=== PATIENT | female | born 1995 | race Caucasian/White ===

== ENCOUNTER → 2016-08-01 | Outpatient (CLI) | payer OTHER ==
--- NOTE | 2016-08-01 12:18 | REP ---
LUMBAR SPINE, FIVE VIEWS: HISTORY: Back pain. COMPARISON: 01/06/2015. A rudimentary disc is present at the S1-2 level. There is no acute fracture or subluxation. The intervertebral discs are normal in height. The facet joints are normal in appearance. IMPRESSION: There is no acute fracture or subluxation. Signed by Milton Donis MD 08/01/2016 12:33 P
== END ==
LOC: M RAD 10:36
PROVIDERS: ATTEND Nurse Practitioner Family
DX: M54.5 Low back pain (principal)

== ENCOUNTER → 2016-08-04 | Outpatient (CLI) | payer OTHER ==
[2016-08-04 10:01] LABS: ALBUMIN 3.2 GM/DL (3.2-5.2); ALBUMIN/GLOBULIN RATIO 0.84 (1.00-1.93); ALKALINE PHOSPHATASE 88 U/L (45-117); ALT/SGPT 18 U/L (12-78); ANION GAP 8 MEQ/L (8-16); AST/SGOT 9 U/L (15-37); BILIRUBIN,TOTAL 0.2 MG/DL (0.2-1.0); BLOOD UREA NITROGEN 12 MG/DL (7-18); CALCIUM LEVEL 8.7 MG/DL (8.5-10.1); CARBON DIOXIDE LEVEL 23 MEQ/L (21-32); CHLORIDE LEVEL 110 MEQ/L (98-107); CHOLESTEROL LEVEL 139 MG/DL (<200); GLOMERULAR FILTRATION RATE > 60.0 (>60); GLUCOSE, FASTING 87 MG/DL (70-105); POTASSIUM SERUM 4.4 MEQ/L (3.5-5.1); SODIUM LEVEL 141 MEQ/L (136-145); TRIGLYCERIDES LEVEL 161 MG/DL (<150)
== END ==
LOC: M LAB 08:15
PROVIDERS: ATTEND Nurse Practitioner Family
DX: Z13.29 Encounter for screening for other suspected endocrine disorder (principal); Z13.220 Encounter for screening for lipoid disorders; F32.9 Major depressive disorder, single episode, unspecified

== ENCOUNTER 2016-08-24 00:52 | Emergency (ER) | payer OTHER ==
[~2016-08-24] VITALS: Ht 172.7 cm; Wt 127.0 kg
[2016-08-24] MEDS ORDERED: depression med PO (01:04)
[2016-08-24] MEDS ORDERED: KETOROLAC 60 MG/2 ML VIAL (J1885) IM ONE (02:00)
--- NOTE | 2016-08-24 02:50 | REPUSA ---
HISTORY: Pain. COMPARISON: Not provided. TECHNIQUE: Multiple thin-section contiguous helically-acquired axially-displayed computed tomographic images of the lumbar spine are obtained from T12 through S1, with images reviewed at soft tissue and bone window. 2D Sagittal and coronal reformatted images are performed. FINDINGS: Straightening of the lumbar lordosis. 3 mm retrolisthesis of L5 on S1. Mild multilevel degenerative disc disease. Findings are demonstrated by multilevel diffuse disc bulge s might impinge on the corresponding aspect of the thecal sac from L3-S1 levels. Mild bilateral neura l foramina narrowing at the same levels. Inverted S-shaped scoliosis. Vertebral body mineralization is normal. No paraspinal masses or collections. IMPRESSION: Inverted S-shaped scoliosis of the lumbar spine. Straightening of the lumbar lordosis. Mild multilevel degenerative disc disease. Thank you for your kind referral of this patient.
[2016-08-24 03:08] VITALS: BP 124/74
[2016-08-24] MEDS ORDERED: KETO10TAB PO (03:11)
[2016-08-25] MEDS ORDERED: PRED20TA PO (05:51)
== END 2016-08-24 03:33 | disposition home or self-care (01) ==
LOC: M ED 01:27
DX: G89.29 Other chronic pain (principal); M54.9 Dorsalgia, unspecified; M51.26 Other intervertebral disc displacement, lumbar region; F32.9 Major depressive disorder, single episode, unspecified; F17.200 Nicotine dependence, unspecified, uncomplicated; M41.86 Other forms of scoliosis, lumbar region; Z79.899 Other long term (current) drug therapy
CPT/HCPCS: 72131; 96372; 99281; J1885

== ENCOUNTER 2016-08-25 04:31 | Emergency (ER) | payer OTHER ==
[~2016-08-25] VITALS: Ht 172.7 cm; Wt 127.0 kg
[~2016-08-25 04:31] MED LIST: KETO10TAB PO; depression med PO
[2016-08-25] MEDS ORDERED: PRED20TA PO (05:51)
[2016-08-25] MEDS ORDERED: dexameTHASONE 20 MG/5 ML VIAL (J1100) IM ONE (06:00)
[2016-08-25] MEDS ORDERED: KETOROLAC 60 MG/2 ML VIAL (J1885) IM ONE (06:00)
[2016-08-25 06:09] VITALS: BP 157/90
== END 2016-08-25 06:34 | disposition home or self-care (01) ==
LOC: M ED 05:22
DX: G89.29 Other chronic pain (principal); M54.9 Dorsalgia, unspecified; F17.200 Nicotine dependence, unspecified, uncomplicated; Z79.899 Other long term (current) drug therapy
CPT/HCPCS: 96372; 99282; J1100; J1885

== ENCOUNTER → 2016-10-04 | Outpatient (REF) | payer OTHER ==
[~2016-10-04] MED LIST changes: +BANO25TA PO; +ESCI10TA2 PO; +METF1000 PO; +NAPR500T PO; +NITR100C37 PO; +PHEN200T22 PO; +PRED20TA PO; +VALI5TAB PO; +VITA500055 PO
[2016-10-04 17:28] LABS: MICROSCOPIC INDICATED? MAN NO (NO)
== END ==
LOC: M LAB REF 16:23
PROVIDERS: ATTEND Physician Assistant
DX: M54.5 Low back pain (principal)

== ENCOUNTER 2016-10-07 12:06 | Emergency (ER) | payer OTHER ==
[~2016-10-07] VITALS: Ht 172.7 cm; Wt 128.7 kg
[2016-10-07 12:06] VITALS: BP 139/85
[~2016-10-07 12:06] MED LIST changes: -BANO25TA PO; -ESCI10TA2 PO; -METF1000 PO; -NAPR500T PO; -NITR100C37 PO; -PHEN200T22 PO; -VALI5TAB PO; -VITA500055 PO
[2016-10-07] MEDS ORDERED: ESCI10TA2 PO (12:11)
[2016-10-07] MEDS ORDERED: BANO25TA PO (12:13)
[2016-10-07] MEDS ORDERED: METF10004 PO (12:13)
[2016-10-07] MEDS ORDERED: NITR100C39 PO (12:14)
[2016-10-07] MEDS ORDERED: VITA500055 PO (12:14)
[2016-10-07] MEDS ORDERED: PHEN200T22 PO (12:14)
[2016-10-07] MEDS ORDERED: diazePAM 5 MG TAB PO ONE (13:00)
[2016-10-07] MEDS ORDERED: NAPROXEN 250 MG TAB PO ONE (13:00)
[2016-10-07] MEDS ORDERED: VALI5TAB PO (13:12)
[2016-10-07] MEDS ORDERED: NAPR500T PO (13:12)
== END 2016-10-07 13:22 | disposition home or self-care (01) ==
LOC: M ED 13:18
DX: M54.31 Sciatica, right side (principal); F32.9 Major depressive disorder, single episode, unspecified; F17.200 Nicotine dependence, unspecified, uncomplicated; Z79.899 Other long term (current) drug therapy

== ENCOUNTER 2016-10-29 20:49 | Emergency (ER) | payer OTHER ==
[~2016-10-29] VITALS: Ht 172.7 cm; Wt 130.2 kg
[~2016-10-29 20:49] MED LIST changes: +BANO25TA PO; +ESCI10TA2 PO; +METF10004 PO; +NAPR500T PO; +NITR100C39 PO; +PHEN200T22 PO; +VALI5TAB PO; +VITA500055 PO
[2016-10-30] MEDS ORDERED: PERCOCET 5MG/325MG TAB PO ONE (00:30)
[2016-10-30] MEDS ORDERED: MORPHINE 4 MG/ML 1ML SYRINGE IM ONE (04:45)
[2016-10-30 04:50] VITALS: BP 141/78
== END 2016-10-30 04:51 | disposition home or self-care (01) ==
LOC: M ED 20:49
DX: G89.29 Other chronic pain (principal); M54.9 Dorsalgia, unspecified; E11.9 Type 2 diabetes mellitus without complications; F32.9 Major depressive disorder, single episode, unspecified; E66.9 Obesity, unspecified; F17.200 Nicotine dependence, unspecified, uncomplicated; Z79.84 Long term (current) use of oral hypoglycemic drugs; Z79.899 Other long term (current) drug therapy; Z91.040 Latex allergy status

== ENCOUNTER → 2016-11-30 | Outpatient (REF) | payer OTHER ==
[~2016-11-30] MED LIST changes: +TRIA1CR TOP
== END ==
LOC: M LAB REF 18:13
PROVIDERS: ATTEND Physician Assistant Medical
DX: R30.0 Dysuria (principal)

== ENCOUNTER 2017-01-09 21:42 | Emergency (ER) | payer OTHER ==
[~2017-01-09] VITALS: Ht 170.2 cm; Wt 127.3 kg
[2017-01-09 21:42] VITALS: BP 178/108
[~2017-01-09 21:42] MED LIST changes: -TRIA1CR TOP
[2017-01-09] MEDS ORDERED: diphenhydrAMINE 50 MG CAP PO ONE (23:00)
[2017-01-09] MEDS ORDERED: TRIA1CR TOP (23:06)
== END 2017-01-09 23:56 | disposition home or self-care (01) ==
LOC: M ED 21:42
DX: S40.861A Insect bite (nonvenomous) of right upper arm, initial encounter (principal); S40.862A Insect bite (nonvenomous) of left upper arm, initial encounter; T78.40XA Allergy, unspecified, initial encounter; W57.XXXA Bitten or stung by nonvenomous insect and other nonvenomous arthropods, initial encounter; Y92.099 Unspecified place in other non-institutional residence as the place of occurrence of the external cause; Y93.9 Activity, unspecified; Y99.9 Unspecified external cause status; J45.909 Unspecified asthma, uncomplicated; E11.9 Type 2 diabetes mellitus without complications; Z79.84 Long term (current) use of oral hypoglycemic drugs; Z79.899 Other long term (current) drug therapy; Z91.040 Latex allergy status

== ENCOUNTER → 2017-04-02 | Outpatient (REF) | payer OTHER ==
[~2017-04-02] MED LIST changes: +TRIA1CR TOP
== END ==
LOC: M LAB REF 13:29
PROVIDERS: ATTEND Nurse Practitioner Adult Health
DX: E03.9 Hypothyroidism, unspecified (principal)

== ENCOUNTER → 2017-05-09 | Outpatient (CLI) | payer OTHER | LOC: M RAD 08:27 | DX: M51.36 Other intervertebral disc degeneration, lumbar region (principal); Z53.9 Procedure and treatment not carried out, unspecified reason ==

== ENCOUNTER → 2017-06-04 | Outpatient (REF) | payer OTHER, MEDICAID ==
[2017-06-05 13:38] LABS: AMORPHOUS SEDIMENT MODERATE (NEGATIVE); APPEARANCE, URINE TURBID (CLEAR); BACTERIA, URINE AUTO NEGATIVE (NEGATIVE); BILIRUBIN, URINE AUTO NEGATIVE (NEGATIVE); BLOOD, URINE BLOOD NEGATIVE (NEGATIVE); COLOR, URINE YELLOW (YELLOW); GLUCOSE, URINE (UA) AUTO NEGATIVE (NEGATIVE); KETONE, URINE AUTO NEGATIVE (NEGATIVE); LEUKOCYTE ESTERASE, URINE AUTO 1+ (NEGATIVE); MUCUS, URINE SMALL (NEGATIVE); NITRITE, URINE AUTO NEGATIVE (NEGATIVE); PROTEIN, URINE AUTO NEGATIVE (NEGATIVE); RBC, URINE AUTO 2 /HPF (0-3); SQUAMOUS EPITHELIAL CELL UR AU 3 /HPF (0-6); UROBILINOGEN, URINE AUTO 0.2 mg/dL (0.0-2.0); WBC, URINE AUTO 1 /HPF (0-3)
[2017-06-05 16:01] LABS: CHLAMYDIA DNA AMPLIFICATION NEGATIVE (NEGATIVE); GC DNA AMPLIFICATION NEGATIVE (NEGATIVE)
== END ==
LOC: M LAB REF 06-05 12:40
DX: R35.0 Frequency of micturition (principal)
CPT/HCPCS: 81001

== ENCOUNTER 2017-06-06 14:04 | Emergency (ER) | payer OTHER, MEDICAID ==
[2017-06-06] MEDS: NORCO, ANEXSIA 5/325MG TABLET (HYDROcodone/ACETAMINOPHEN) PO (15:54)
[2017-06-06 16:10] LABS: KETONE, URINE AUTO RFX TRACE mg/dL (NEGATIVE); MUCUS, URINE RFX MODERATE (NEGATIVE); NITRITE, URINE AUTO RFX NEGATIVE (NEGATIVE); RBC, URINE AUTO RFX 6 /HPF (0-3); SPECIFIC GRAVITY UR AUTO RFX 1.027 (1.002-1.035); SQUAM EPITHELIAL CELL UR AURFX 24 /HPF (0-6)
[2017-06-06 16:12] LABS: LEUKOCYTE ESTERASE UR AUTO RFX 2+ (NEGATIVE); WBC, URINE AUTO RFX 30 /HPF (0-3)
== END 2017-06-06 18:00 | disposition home or self-care (01) ==
LOC: M ED 14:04
DX: S00.431A Contusion of right ear, initial encounter (principal); S60.042A Contusion of left ring finger without damage to nail, initial encounter; S13.4XXA Sprain of ligaments of cervical spine, initial encounter; S03.40XA Sprain of jaw, unspecified side, initial encounter; N39.0 Urinary tract infection, site not specified; Y04.8XXA Assault by other bodily force, initial encounter; Y92.099 Unspecified place in other non-institutional residence as the place of occurrence of the external cause; Y93.9 Activity, unspecified; E11.9 Type 2 diabetes mellitus without complications; J45.909 Unspecified asthma, uncomplicated; F32.9 Major depressive disorder, single episode, unspecified; F17.200 Nicotine dependence, unspecified, uncomplicated; Z79.84 Long term (current) use of oral hypoglycemic drugs; Z91.040 Latex allergy status
CPT/HCPCS: 73130

== ENCOUNTER → 2017-07-11 | Outpatient (REF) | payer OTHER, MEDICAID ==
[2017-07-11 20:21] LABS: HIV 1&2 SCREEN CENTAUR NEGATIVE (NEGATIVE)
== END ==
LOC: M LAB REF 17:48
DX: Z11.3 Encounter for screening for infections with a predominantly sexual mode of transmission (principal)
CPT/HCPCS: 86780

== ENCOUNTER → 2017-08-08 | Outpatient (REF) | payer OTHER, MEDICAID ==
[2017-08-08 13:09] LABS: HIV 1&2 SCREEN CENTAUR NEGATIVE (NEGATIVE)
[2017-08-08 13:10] LABS: HEPATITIS A ANTIBODY IGM NEGATIVE (NEGATIVE)
[2017-08-08 13:21] LABS: ESTIMATED AVERAGE GLUCOSE 120 MG/DL (60-110); HEMOGLOBIN A1c 5.8 %
[2017-08-09 08:06] LABS: HEPATITIS B CORE ANTIBODY IGG Negative (Negative)
== END ==
LOC: M LAB REF 11:49
DX: I10 Essential (primary) hypertension (principal); Z11.3 Encounter for screening for infections with a predominantly sexual mode of transmission

== ENCOUNTER → 2017-08-30 | Outpatient (REF) | payer OTHER, MEDICAID | LOC: M LAB REF 18:19 | DX: E03.9 Hypothyroidism, unspecified (principal) | CPT/HCPCS: 84443 ==

== ENCOUNTER 2017-11-22 19:39 | Emergency (ER) | payer OTHER, MEDICAID ==
[2017-11-22] MEDS: BACLOFEN 10 MG TAB PO (20:14)
[2017-11-22] MEDS: KETOROLAC TROMETHAMINE 10 MG TAB PO (20:15)
== END 2017-11-22 20:51 | disposition home or self-care (01) ==
LOC: M ED 19:39
DX: G89.29 Other chronic pain (principal); M54.5 Low back pain; E11.9 Type 2 diabetes mellitus without complications; I10 Essential (primary) hypertension; J45.909 Unspecified asthma, uncomplicated; F41.9 Anxiety disorder, unspecified; F33.9 Major depressive disorder, recurrent, unspecified; Z79.890 Hormone replacement therapy; Z79.84 Long term (current) use of oral hypoglycemic drugs; F17.210 Nicotine dependence, cigarettes, uncomplicated
CPT/HCPCS: 99282

== ENCOUNTER → 2017-12-03 | Outpatient (CLI) | payer OTHER | LOC: M RAD 17:03 | DX: M54.5 Low back pain (principal) | CPT/HCPCS: 72148 ==

== ENCOUNTER 2017-12-24 14:07 | Outpatient (RCR) | payer OTHER | END 2018-01-13 | LOC: M PT 14:07 | DX: M54.5 Low back pain (principal); Z51.89 Encounter for other specified aftercare | CPT/HCPCS: 97010 ==

== ENCOUNTER 2018-01-14 15:50 | Outpatient (RCR) | payer OTHER | END 2018-02-13 | LOC: M PT 01-16 15:15 | DX: Z51.89 Encounter for other specified aftercare (principal); M54.5 Low back pain | CPT/HCPCS: 97010 ==

== ENCOUNTER → 2018-03-05 | Outpatient (REF) | payer OTHER, MEDICAID | LOC: M LAB REF 16:44 | DX: E03.9 Hypothyroidism, unspecified (principal) | CPT/HCPCS: 84443 ==

== ENCOUNTER → 2018-03-13 | Outpatient (REF) | payer OTHER, MEDICAID ==
[2018-03-13 18:31] LABS: RHEUMATOID FACTOR QUANT < 10.0 IU/ML (<15.0); TOTAL PROTEIN 7.7 GM/DL (6.4-8.2)
[2018-03-13 18:41] LABS: FOLATE 8.8 NG/ML; VITAMIN B12 LEVEL 386 PG/ML
[2018-03-13 19:01] LABS: ESTIMATED AVERAGE GLUCOSE 123 MG/DL (60-110); HEMOGLOBIN A1c 5.9 %
[2018-03-13 19:44] LABS: ERYTHROCYTE SEDIMENTATION RATE 14 mm/hr (0-20)
[2018-03-15 11:25] LABS: ALBUMIN 3.89 GM/DL (3.29-5.55); ALBUMIN % 50.5 % (55.8-66.1); ALPHA-1-GLOBULIN % 6.3 % (2.9-4.9); ALPHA-1-GLOBULINS 0.49 GM/DL (0.17-0.41); ALPHA-2-GLOBULINS 1.09 GM/DL (0.42-0.99); ALPHA-2-GLOBULINS % 14.1 % (7.1-11.8); BETA-1-GLOBULINS 0.67 GM/DL (0.28-0.60); BETA-1-GLOBULINS % 8.7 % (4.7-7.2); BETA-2-GLOBULINS 0.57 GM/DL (0.19-0.55); BETA-2-GLOBULINS % 7.4 % (3.2-6.5)
[2018-03-19 09:17] LABS: DRVV SCREEN 44.5 SEC
[2018-03-19 09:30] LABS: PTT LUPUS TYPE ANTICOAG SCREEN 1.1 (0-1.2)
[2018-03-20 10:11] LABS: ANTINUCLEAR ANTIBODIES DIRECT Negative (Negative); VITAMIN B1 LEVEL WHOLE BLOOD 156.2 nmol/L (66.5-200.0); VITAMIN B6,PYRIDOXAL PHOSPHATE 1.8 ug/L (2.0-32.8); VITAMIN E(ALPHA TOCOPHEROL) 7.9 mg/L (5.9-19.4); VITAMIN E(GAMMA TOCOPHEROL) 1.7 mg/L (0.7-4.9)
== END ==
LOC: M LABNEURO 13:07
DX: M54.2 Cervicalgia (principal); M54.5 Low back pain
CPT/HCPCS: 82746

== ENCOUNTER → 2018-03-18 | Outpatient (REF) | payer OTHER, MEDICAID ==
[2018-03-18 13:47] LABS: BASO # 0.1 10^3/uL (0.0-0.2); BASO % 0.5 % (0.0-1.0); EOS # 0.3 10^3/uL (0.0-0.50); EOS % 2.4 % (0.0-3.0); HEMATOCRIT 39.6 % (36.0-47.0); HEMOGLOBIN 12.3 g/dl (12.0-15.5); IMMATURE GRANULOCYTE % 0.4 % (0-3.0); LYMPH % 24.5 % (24.0-44.0); MEAN CORPUSCULAR HEMOGLOBIN 24.4 pg (27.0-33.0); MEAN CORPUSCULAR HGB CONC 31.1 g/dl (32.0-36.5); MEAN CORPUSCULAR VOLUME 78.4 fl (80.0-96.0); MONO # 0.9 10^3/uL (0.0-0.8); MONO % 7.1 % (0.0-5.0); NEUTROPHILS # 7.9 10^3/uL (1.8-7.7); NEUTROPHILS % 65.1 % (36.0-66.0); PLATELET COUNT, AUTOMATED 487 10^3/uL (150-450); RED BLOOD COUNT 5.05 10^6/uL (4.00-5.40); RED CELL DISTRIBUTION WIDTH 15.5 % (11.5-14.5); WHITE BLOOD COUNT 12.1 10^3/uL (4.0-10.0)
[2018-03-19 09:44] LABS: DRVV SCREEN 46.4 SEC
[2018-03-19 09:52] LABS: PTT LUPUS TYPE ANTICOAG SCREEN 1.1 (0-1.2)
== END ==
LOC: M LABNEURO 09:26
DX: M54.2 Cervicalgia (principal); M54.5 Low back pain; G89.29 Other chronic pain
CPT/HCPCS: 85730

== ENCOUNTER → 2018-06-10 | Outpatient (REF) | payer OTHER, MEDICAID ==
[~2018-06-10] MED LIST changes: +BACL10TA2 PO; +CIPR-249 PO; +DICL75TA PO; +LEVO25TA5; +LISINOP/HCTZ; +NAPR-50 PO; +NAPR-885 PO; -NAPR500T PO
[2018-06-10 20:03] LABS: ALBUMIN 3.7 GM/DL (3.2-5.2); ALT/SGPT 17 U/L (12-78); BILIRUBIN,TOTAL 0.1 MG/DL (0.2-1.0); BLOOD UREA NITROGEN 15 MG/DL (7-18); CALCIUM LEVEL 9.1 MG/DL (8.5-10.1); CARBON DIOXIDE LEVEL 23 MEQ/L (21-32); CHLORIDE LEVEL 110 MEQ/L (98-107); CREATININE FOR GFR 0.76 MG/DL (0.55-1.30); GLOMERULAR FILTRATION RATE > 60.0 (>60); GLUCOSE, FASTING 80 MG/DL (70-100); POTASSIUM SERUM 3.7 MEQ/L (3.5-5.1); SODIUM LEVEL 141 MEQ/L (136-145); TOTAL 25(OH) VITAMIN D 41.5 NG/ML (30.0-100.0); TOTAL PROTEIN 7.5 GM/DL (6.4-8.2)
== END ==
LOC: M LAB REF 19:13
PROVIDERS: ATTEND Nurse Practitioner Adult Health
DX: E03.9 Hypothyroidism, unspecified (principal)

== ENCOUNTER → 2018-12-19 | Outpatient (REF) | payer OTHER, MEDICAID ==
[~2018-12-19] MED LIST changes: -NAPR-50 PO; +NAPR-837 PO; +TRIA0.1C60 TOP; -TRIA1CR TOP
[2018-12-19 19:59] LABS: ALBUMIN 3.3 GM/DL (3.2-5.2); ALT/SGPT 21 U/L (12-78); BILIRUBIN,TOTAL < 0.1 MG/DL (0.2-1.0); BLOOD UREA NITROGEN 12 MG/DL (7-18); CALCIUM LEVEL 9.8 MG/DL (8.5-10.1); CARBON DIOXIDE LEVEL 25 MEQ/L (21-32); CHLORIDE LEVEL 110 MEQ/L (98-107); CREATININE FOR GFR 0.71 MG/DL (0.55-1.30); GLOMERULAR FILTRATION RATE > 60.0 (>60); GLUCOSE, FASTING 120 MG/DL (70-100); POTASSIUM SERUM 4.3 MEQ/L (3.5-5.1); SODIUM LEVEL 140 MEQ/L (136-145); TOTAL 25(OH) VITAMIN D 27.8 NG/ML (30.0-100.0); TOTAL PROTEIN 7.1 GM/DL (6.4-8.2)
[2018-12-19 21:05] LABS: CHLAMYDIA DNA AMPLIFICATION NEGATIVE (NEGATIVE); GC DNA AMPLIFICATION NEGATIVE (NEGATIVE)
[2018-12-20 12:03] LABS: HIV 1&2 SCREEN CENTAUR NEGATIVE (NEGATIVE)
== END ==
LOC: M LAB REF 19:05
PROVIDERS: ATTEND Nurse Practitioner Adult Health
DX: Z11.3 Encounter for screening for infections with a predominantly sexual mode of transmission (principal)

== ENCOUNTER 2019-03-10 03:14 | Inpatient (IN) | payer MEDICAID, OTHER ==
[~2019-03-10] VITALS: Ht 172.7 cm; Wt 118.4 kg
[~2019-03-10 03:14] MED LIST changes: -LEVO25TA5; +LEVO25TA5 PO
[2019-03-10] MEDS ORDERED: NS 1,000 ML IV ONE (05:00)
[2019-03-10] MEDS ORDERED: IPRATROPIUM 0.5MG/ALBUTEROL 2.5MG INH SOL UD 3ML (DUONEB)(J7620) NEB ONE ×2 (05:00→06:30)
[2019-03-10 05:26] LABS: HEMOGLOBIN 11.3 g/dl (12.0-15.5); MEAN CORPUSCULAR VOLUME 80.7 fl (80.0-96.0); RED BLOOD COUNT 4.71 10^6/uL (4.00-5.40); WHITE BLOOD COUNT 15.4 10^3/uL (4.0-10.0)
[2019-03-10 05:27] LABS: BASO # 0.1 10^3/uL (0.0-0.2); BASO % 0.4 % (0.0-1.0); EOS # 0.1 10^3/uL (0.0-0.5); EOS % 0.3 % (0.0-3.0); LYMPH # 2.4 10^3/uL (1.5-5.0); LYMPH % 15.4 % (24.0-44.0); MEAN CORPUSCULAR HGB CONC 29.7 g/dl (32.0-36.5); MONO # 1.5 10^3/uL (0.0-0.8); MONO % 9.9 % (0.0-5.0); NEUTROPHILS # 11.3 10^3/uL (1.5-8.5); NEUTROPHILS % 73.5 % (36.0-66.0); PLATELET COUNT, AUTOMATED 487 10^3/uL (150-450)
[2019-03-10 05:32] LABS: HCG, SERUM QUALITATIVE NEGATIVE (NEGATIVE)
[2019-03-10 06:04] LABS: INFLUENZA A AMPLIFICATION NEGATIVE (NEGATIVE); INFLUENZA B AMPLIFICATION NEGATIVE (NEGATIVE)
[2019-03-10 06:16] LABS: BLOOD UREA NITROGEN 10 MG/DL (7-18); CREATININE FOR GFR 0.69 MG/DL (0.55-1.30); GLOMERULAR FILTRATION RATE > 60.0 (>60); GLUCOSE, FASTING 141 MG/DL (70-100)
[2019-03-10 06:17] LABS: CALCIUM LEVEL 9.5 MG/DL (8.5-10.1); CARBON DIOXIDE LEVEL 24 MEQ/L (21-32); CHLORIDE LEVEL 109 MEQ/L (98-107); CK-MB VALUE MASS < 1.0 NG/ML (<3.6); CPK CREATINE PHOSPHOKINASE 36 U/L (26-192); MB/CK RELATIVE INDEX 2.77 (< OR =4); POTASSIUM SERUM 3.8 MEQ/L (3.5-5.1); SODIUM LEVEL 142 MEQ/L (136-145); TROPONIN I < 0.02 NG/ML (< 0.10)
[2019-03-10] MEDS ORDERED: ISOVUE-370 76% 100ML VIAL (Q9967) As Ordered ONE (06:20)
[2019-03-10] MEDS ORDERED: KETOROLAC 30 MG/ML VIAL (J1885) As Ordered ONE (06:24)
[2019-03-10] MEDS ORDERED: KETOROLAC 30 MG/ML VIAL (J1885) IV ONE (06:30)
--- NOTE | 2019-03-10 06:59 | REPVR ---
PROCEDURE INFORMATION: Exam: CT Angiography Chest With Contrast Exam date and time: 03/10/2019 6:36 AM Age: 23 years old Clinical history: Shortness of breath; Chest pain; Type not specified; Additional info: Chest pain, SOB, tachy, pos d-dimer TECHNIQUE: Imaging protocol: Computed tomographic angiography of the chest with intravenous contrast. 3D rendering: MIP reconstructed images were created and reviewed. Radiation optimization: All CT scans at this facility use at least one of these dose optimization techniques: automated exposure control; mA and/or kV adjustment per patient size (includes targeted exams where dose is matched to clinical indication); or iterative reconstruction. Contrast material: ISOVUE 370; Contrast volume: 75 ml; Contrast route: IV; COMPARISON: CR Chest, 2 view PA, Lat 03/10/2019 5:08 AM FINDINGS: Pulmonary arteries: There is a large central masslike density in the right perihilar region likely due to large central occlusive clot in the right lower lobe pulmonary artery with no flow seen into the segmental or subsegmental pulmonary arteries. There are patchy right lower lobe infiltrates. The study is overall markedly limited for the evaluation of the pulmonary arteries to. Aorta: Unremarkable. No aortic aneurysm. No aortic dissection. Lungs: Linear atelectatic changes seen in the right upper lobe and left lower lobe. Pleural space: Unremarkable. No pneumothorax. No pleural effusion. Heart: Unremarkable. No cardiomegaly. No pericardial effusion. Lymph nodes: Unremarkable. No enlarged lymph nodes. Bones/joints: Unremarkable. No acute fracture. Soft tissues: Unremarkable. IMPRESSION: 1. Large central occlusive clot involving the right lower lobe pulmonary artery with no flow into the right lower lobe segmental and subsegmental pulmonary arteries with patchy groundglass infiltrates likely parenchymal infarcts. Some of those clots appear to extend to the origin of the right middle lobe pulmonary artery. A central perihilar mass cannot be completely excluded. 2. No CT evidence of right heart strain. 3. Study is suboptimal for the evaluation of the pulmonary arteries and thus segmental and subsegmental PEs involving the right upper, left upper and left lower lobes cannot be excluded. 4. Hypoventilatory changes with linear atelectatic changes seen in the right upper lobe and left upper lobe. Electronically signed by: Papi Stokes On 03/10/2019 06:59:04 AM
[2019-03-10] MEDS ORDERED: LevoFLOXacin IV 750 MG in IV 1 EA IV ONE (07:00)
[2019-03-10] MEDS ORDERED: HEPARIN DRIP 25,000 UNITS in IV 1 EA IV SCH ×2 (07:06→08:19)
[2019-03-10] MEDS ORDERED: HEPARIN SOD (PORCINE) 5000 UNITS/ML VIAL IV ONE (07:15)
[2019-03-10] MEDS ORDERED: LISI20TA20 PO (07:26)
[2019-03-10] MEDS ORDERED: DULO30CA9 PO (07:26)
[2019-03-10] MEDS ORDERED: ACET-683 PO (07:26)
[2019-03-10] MEDS ORDERED: XULA1DIS TOP (07:26)
[2019-03-10] MEDS ORDERED: METF-791 PO (07:26)
[2019-03-10] MEDS ORDERED: AMOX875T PO (07:26)
[2019-03-10] MEDS ORDERED: TIZA4TAB4 PO (07:26)
--- NOTE | 2019-03-10 07:29 | ECGEPIP ---
[facility] - ED Test Date: 2019-03-10 Pat Name: CLARISSE BENNETT Department: Room: - Gender: Female [employer] Machine: : 1995 Requested By: PRISCILLA Gustafson Order Number: [id number] Reading MD: Ken Miller Measurements Intervals [place] Rate: 122 P: 14 ME: 169 QRS: -2 QRSD: 107 T: 6 QT: 419 QTc: 599 Interpretive Statements SINUS TACHYCARDIA VOLTAGE CRITERIA FOR LVH MODERATE INTRAVENTRICULAR CONDUCTION DELAY NONSPECIFIC T-WAVE ABNORMALITY SIMILAR TO 02/08/17 Electronically Signed on 03-10-2019 7:29:47 EST by Ken Miller
--- NOTE | 2019-03-10 08:02 | REPVR ---
PROCEDURE INFORMATION: Exam: US Duplex Bilateral Lower Extremity Veins Exam date and time: 03/10/2019 7:54 AM Age: 23 years old Clinical history: Abnormal findings; Abnormal imaging study of limbs; Chest; CT; Additional info: Pe, eval for dvt's TECHNIQUE: Imaging protocol: Real-time duplex ultrasound of the Bilateral Lower Extremities with 2-D thorpe scale, color Doppler flow and spectral waveform analysis with image documentation. Complete exam focused on the bilateral lower extremity veins. COMPARISON: No relevant prior studies available. FINDINGS: Right deep veins: Unremarkable. The common femoral, femoral, proximal profunda femoral and popliteal veins are patent without thrombus. Normal Doppler waveforms. Normal compressibility and/or augmentation response. Right superficial veins: Saphenofemoral junction is patent without thrombus. Left deep veins: Unremarkable. The common femoral, femoral, proximal profunda femoral and popliteal veins are patent without thrombus. Normal Doppler waveforms. Normal compressibility and/or augmentation response. Left superficial veins: Saphenofemoral junction is patent without thrombus. Soft tissues: Unremarkable. IMPRESSION: No deep venous thrombus demonstrated in either lower extremity. Electronically signed by: Adalid Reich On 03/10/2019 08:02:04 AM
[2019-03-10] MEDS ORDERED: ALBUTEROL SULFATE 2.5 MG/0.5 ML INH NEB SOLN INH PRN (08:15)
[2019-03-10 08:25] LABS: INR 1.18; PROTHROMBIN TIME 14.8 SECONDS (11.8-14.0)
[2019-03-10 08:26] LABS: PARTIAL THROMBOPLASTIN TIME 31.3 SECONDS (25.0-38.4)
[2019-03-10] MEDS ORDERED: GLUCAGON FOR INJ 1 MG VIAL (J1610) SC PRN (08:30)
[2019-03-10] MEDS ORDERED: DEXTROSE 50% 50 ML SYRINGE IV PRN (08:30)
[2019-03-10] MEDS ORDERED: GLUCOSE 4 GM CHEW TABLET PO PRN (08:30)
[2019-03-10 08:58] VITALS: BP 119/58
[2019-03-10] MEDS ORDERED: DULoxetine 30 MG CAP (CYMBALTA) PO ONE (09:00)
[2019-03-10] MEDS ORDERED: hydroCHLOROthiazide 25 MG TAB PO ONE (09:00)
[2019-03-10] MEDS ORDERED: LISINOPRIL 20 MG TAB PO ONE (09:00)
--- NOTE | 2019-03-10 09:03 | HPEPDOC ---
General Date of Admission 03/10/2019 Date of Service: Mar 10, 2019 Primary Care Physician: Antoinette Other Providers PCP: Cindy Garcia Attending Physician: KARIN FINK MD Chief Complaint The patient is a 23-year-old female admitted with a reason for visit of Anxiety. Source: Patient Exam Limitations: No limitations Timing/Duration: Day(s) Severity: Moderate Associated Symptoms: Chest Pain, Cough, Fever, Shortness of breath History of Present Illness 23 y woman with a history of smoking(1ppd), on OCPs (patch), morbid obesity, childhood asthma, DM, hypothyroidism, depression, hypertension, chronic back pain and a recent urgent care visit for ear infection and just completed 10d course of amoxicillin who presented to the ED with acute onset R sided pleurisy and dyspnea on exertion with an increasingly productive cough and subjective fevers of two day duration. She reports feeling "warm", increasingly short of breath over the last two days, has sharp 6-7/10 right sided chest pain that is worse with deep breathing that is absent at this time since getting pain medication in the ED, and a recent mild cold that has resolved without current congestion, rhinorrhea, sore throat or headaches. In the ED her initial vitals were BP 139/79, HR 90s, Tmax 1002, RR 20, 91% on RA and was placed on 2L nasal canula. Initial work up was notable for a WBC 15.4, Hgb 11.3, Hct 38, platelets 487, Cr 0.69, negative troponin, negative flu PCR and D-dime of 2109. She subsequently had a chest CTA that showed a large central occlusive RLL pulmonary arteries with patchy GGOs and clot extending to the RML arteries without evidence of R heart strain, while an EKG showed sinus tachycardia. She denied a history of prior clots, a history of recent prolonged travel or immobility, known family history of clots, recent or weight loss. While in the ED, she was given toradol with good effect for her right sided chest pain, levaquin for empiric treatment for pneumonia, albuterol neb x 1, duonebs x 2 and 1L NS and is pending LE doppler US. She is now being admitted to medicine for management of an acute PE and pneumonia. Home Medications Scheduled Amoxicillin (Amoxicillin) 875 Mg Tablet, 875 MG PO BID, (Reported) for 10 days, started 02/28 Duloxetine Hcl (Duloxetine HCl) 30 Mg Capsule.dr, 30 MG PO DAILY, (Reported) Levothyroxine Sodium (Levothyroxine Sodium) 25 Mcg Tab, 25 MCG PO QAM, (Reported) Lisinopril/Hydrochlorothiazide (Lisinopril-Hctz 20-25 mg Tab) 1 Each Tablet, 1 TAB PO DAILY, (Reported) Metformin HCl (Metformin HCl ER) 500 Mg Tab.er.24h, 1,000 MG PO QPM, (Reported) Norelgestromin/Ethin.estradiol (Xulane Patch) 1 Each Patch.tdwk, 1 PATCH TOP QWEEK, (Reported) Scheduled PRN Acetaminophen (Acetaminophen) 500 Mg Tablet, 1,000 MG PO Q6H PRN for HEADACHE, (Reported) Tizanidine HCl (Tizanidine HCl) 4 Mg Tablet, 4 MG PO TID PRN for MUSCLE SPASMS, (Reported) Allergies Coded Allergies: latex (Verified Allergy, Unknown, 03/10/19) Past Medical History Medical History Childhood asthma Smoker, 1 ppd Morbid obesity Chronic back pain Hypothyroidism Hypertension Depression Surgical History None Family History Significant Family History: No pertinent family hx Social History * Smoker: current smoker (1 ppd) Alcohol: Denies Drugs: marijuana (occasional. Denies other illicits or prescription drug abuse) Recent Travel/Sick Contacts: Denies: Recent travel, Recent sick contacts Psychosocial History: Depression (Doing well on her medication) Recently worked at [employer]. Recently quit 1 week ago due to uncontrolled back pain. Lives with her boyfriend and brother in an apartment in [place]. Smokes 1 pack per day and smokes occasional MJ and denies alcohol any other illicit or prescription medication abuse. A-FIB/CHADSVASC A-FIB History Current/History of A-Fib/PAF?: No Current PO Anticoag Therapy: Yes Age/Risk Factor Scoring CHADSVASC: CHADSVASC Response (Comments) Value Age Risk Factor Age < 65 years old 0 Gender Risk Factor Female 1 Hx of CHF No 0 Hx of HTN Yes 1 Hx of Stroke/TIA/or VTE Yes 2 Hx of Diabetes Yes 1 Hx of Vascular Disease No 0 Total 5 Treatment Treatment ordered: Heparin IV bridge Therapy Review of Systems Constitutional: Reports: Fever (subjective fevers at home); Denies: Chills, Malaise, Night Sweats, Weakness, Fatigue, Weight Loss, Lethargy Eyes: Denies: Pain, Vision change ENT: Denies: Head Aches, Ear Pain, Dysphagia Skin: Denies: Rash, Lesions, Breakdown Pulmonary: Reports: Dyspnea, Cough, Pleuritic Chest Pain Cardiovascular: Reports: Chest Pain; Denies: Palpitations, Orthopnea, Paroxysmal Noc. Dyspnea, Edema, Lt Headedness Gastrointestinal: Denies: Nausea, Vomiting, Abdominal Pain, Diarrhea Genitourinary: Denies: Dysuria, Frequency, Incontinence, Retention Hematologic: Denies: Bruising, Bleeding Excessively Endocrine: Reports: Polyuria; Denies: Polydipsia, Polyphagia, Heat Intolerance, Cold Intolerance Musculoskeletal: Reports: Back Pain (chronic) Neurological: Denies: Weakness, Numbness, Change in speech, Confusion Psych: Reports: Mood Normal; Denies: Depression, Memory Issues Physical Examination General Exam: Positive: Alert, Cooperative, No Acute Distress Eye Exam: Positive: PERRLA, Conjunctiva & lids normal, EOMI; Negative: Sclera icteric ENT Exam: Positive: Atraumatic, Mucous membr. moist/pink, Pharynx Normal, Tongue Midline, Nares Patent, Tympanic Membranes Normal, Ext Auditory Canal Nml, Other ENT (has lip ring, no erythema); Negative: Pharyngeal Edema Neck Exam: Positive: Supple; Negative: JVD, thyromegaly Chest Exam: Positive: Normal air movement, Rales (R lower and middle posterior lung darling with crackles); Negative: Wheezing Heart Exam: Positive: Tachycardic, Regular Rhythm, Normal S1, Normal S2; Negative: Gallops, Murmurs, Rubs Telemetry: Positive: No significant arrhythmia Abdomen Exam: Positive: Normal bowel sounds, Soft, Other (Obese); Negative: Tenderness, Hepatospenomegaly Extremity Exam: Positive: Normal pulses; Negative: Clubbing, Cyanosis, Edema, Tenderness, Swelling Skin Exam: Positive: Nl turgor and temperature; Negative: Breakdown, Lesion Neuro Exam: Positive: Normal Gait, Normal Speech, Strength at 5/5 X4 ext, Normal Tone, Sensation Intact, Cranial Nerves 3-12 NL, Reflexes 2+ Psych Exam: Positive: Mental status NL, Mood NL, Oriented x 3 Vital Signs Vital Signs Date Time Temp Pulse Resp B/P (MAP) Pulse Ox O2 Delivery O2 Flow Rate FiO2 11/25/19 08:00 122 129/56 (80) 03/10/19 07:30 24 94 Nasal Cannula 2.0 03/10/19 06:15 99.0 Laboratory Data Labs 24H Laboratory Tests 2 03/10/19 05:09: Immature Granulocyte % (Auto) 0.5, Neutrophils (%) (Auto) 73.5H, Lymphocytes (%) (Auto) 15.4L, Monocytes (%) (Auto) 9.9H, Eosinophils (%) (Auto) 0.3, Basophils (%) (Auto) 0.4, Neutrophils # (Auto) 11.3H, Lymphocytes # (Auto) 2.4, Monocytes # (Auto) 1.5H, Eosinophils # (Auto) 0.1, Basophils # (Auto) 0.1, Nucleated Red Blood Cells % (auto) 0.0, D-Dimer, Quantitative 2109.83H, Anion Gap 9, Glomerular Filtration Rate > 60.0, Calcium Level 9.5, Total Creatine Kinase 36, Creatine Kinase MB < 1.0, Creatine Kinase MB Relative Index 2.77, Troponin I < 0.02, Human Chorionic Gonadotropin, Qual NEGATIVE, Influenza Type A (RT-PCR) NEGATIVE, Influenza Type B (RT-PCR) NEGATIVE 03/10/19 05:59: Lactic Acid Level 0.8 03/10/19 07:25: CBC/BMP Laboratory Tests 03/10/19 05:09 Microbiology Microbiology 03/10/19 Blood Culture, Received Pending 03/10/19 Blood Culture, Received Pending Assessment/Plan 23 year old woman with morbid obesity, smoker, on OCPs who presented with acute onset right sided pleurisy and dyspnea on exertion and found to have a large occlusive RLL pulmonary PE and evidece of pneumonia with mild hypoxemia and significant pleurisy related pain now admitted for anticoagulation initially with heparin to transition to a NoAC, pending LE dopplers, antibiotics and monitoring of her hypoxemia. Pulmonary embolism: Elevated D-Dimer, +CTA with large central right occlusive RLL pulmonary arteries extending into the RML arterial system, HCG negative -Continue heparin gtt for now -follow up LE doppler US -Plan for transition to NoAC likely Eliquis -Smoking cessation counselling as this increases risk for clots, especially with OCPs onboard -hold OCPs -Sinus tachycardia, no significant arrhythmia or history of, continue telemetry monitoring while inpatient -supplemental O2, to goal >92% -Incentive spirometry -Pleurisy pain management with toradol 30Q6 PRN for moderate to severe pain and tylenol 650 Q6H PRN for mild pain -Will not pursue hypercoaguable work up at this time in the setting of an acute clot, will defer to PCP, notified of admission Community acquired pneumonia: evidence of RLL GGOs on CT, with RLL crackles, productive cough, leukocytosis and subjective fevers -s/p levaquin IV -will start PO moxi tomorrow morning to finish 5d course of community acquired pneumonia -In the meantime, follow up BCx, SCx and procalcitonin Smoking: -Extensively counseled to consider quitting as it increases risk for clots while on OCPs for 15 minutes. -Will give nicotine patch Q24H DM: -hold metformin -SSI -FSBG AC/HS -hypoglycemia protocol -consistent carb diet Hypothyroidism: -continue home synthroid Hypertension: -continue home lisinopril and HCTZ Depression: -continue home duloxetine Chronic back pain spasms: -continue home tizanidine PRN Dispo: Med surg floor for BCx and SCx result, LE doppler results, transition to Eliquis and resolution of hypoxemia. Code status: Full code. Health care proxy confirmed to be mother, Liv who is documented in the chart. PCP: Cindy Garcia, notified of admission Plan / VTE VTE Prophylaxis Ordered?: Yes KARIN FINK MD Mar 10, 2019 09:03
--- NOTE | 2019-03-10 09:14 | REP ---
CHEST X-RAY: TWO VIEWS. HISTORY: Dyspnea and cough. COMPARISON STUDY: December 26, 2014 FINDINGS: Today's radiographs are expose at a low level of inspiration compared to the prior study. Right hemidiaphragm is somewhat elevated. There is linear perihilar opacity on the right consistent with discoid atelectasis. The lung markings are increased in both bases. No definite focal infiltrate is seen. There is no evidence of pleural effusion. Heart is not felt to be enlarged. IMPRESSION: Poor level of inspiration. Right perihilar platelike atelectasis. No definite infiltrate. Electronically Signed by Manuel Ornelas MD 03/10/2019 09:55 A
[2019-03-10 12:20] VITALS: BP 149/90
[2019-03-10] MEDS ORDERED: HEPARIN SOD (PORCINE) 5000 UNITS/ML VIAL IV PRN (12:30)
--- NOTE | 2019-03-10 13:03 | IPNPDOC ---
Date Seen The patient was seen on 03/10/19. Progress Note SUBJECTIVE: Received signout from Dr. Cole, pt VSS, PCP contacted. Spoke with patient, complains of chest pain, educated patient that she can ask for pain medications. OBJECTIVE PHYSICAL EXAMINATION: VITAL SIGNS: Please see below. GENERAL: Morbidly obese female in no acute distress, able to speak in full sentences HEENT:. Normocephalic, atraumatic, moist mucous membranes CARDIOVASCULAR:. S1, S2. RESPIRATORY: Diminished, difficult to auscultate with body habitus, not dependent on O2 ABDOMINAL: Positive bowel sounds, slight tenderness to palpation in the epigastric region EXTREMITIES:. No edema, nontender to palpation in bilateral calves NEUROLOGICAL: Follows instructions without difficulty PSYCHOLOGICAL:. Has capacity LABORATORY DATA, IMAGING STUDIES, MICROBIOLOGY: Please see below. Pt is a 23 yoF with PMH of morbid obesity, smoker, on OCPs with large occlusive RLL pulmonary PE and CAP. #Pulmonary embolism: start Eliquis 10 mg twice daily for 7 days followed by 5 mg twice daily for 3 months. HCG negative, LE doppler US neg for DVT, Smoking cessation , dc OCP, O2 prn, Incentive spirometry, PCP notified #Pleurisy pain management with toradol 30Q6 PRN for moderate to severe pain and tylenol 650 Q6H PRN for mild pain; #nausea, likely secondary to pleurisy pain, will treat with oral Phenergan, if not tolerate po consider IM, avoid IV Phenergan due to possible risk of peripheral IV necrosis, avoid Zofran due to QT prolongation with FQ, avoid Reglan due to interaction with SNRI #CAP: levaquin IV, neb tx, will start PO moxi 03/11 to finish 5d course for CAP, f/u BCx, SCx and procalcitonin #Tobacco dependence: nicotine patch Q24H # control/?PCOS: Follow-up with PCP 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 Code status: Full code. Documented Health care proxy: mother, Liv PCP: Cindy Garcia, notified of admission VS, I&O, 24H, [place] Vital Signs/I&O Vital Signs Date Time Temp Pulse Resp B/P (MAP) Pulse Ox O2 Delivery O2 Flow Rate FiO2 03/10/19 12:01 138/92 (107) 03/10/19 12:00 126 18 96 Nasal Cannula 03/10/19 11:15 2.0 03/10/19 06:15 99.0 Laboratory Data 24H LABS Laboratory Tests 2 03/10/19 05:05: 03/10/19 05:09: Immature Granulocyte % (Auto) 0.5, Neutrophils (%) (Auto) 73.5H, Lymphocytes (%) (Auto) 15.4L, Monocytes (%) (Auto) 9.9H, Eosinophils (%) (Auto) 0.3, Basophils (%) (Auto) 0.4, Neutrophils # (Auto) 11.3H, Lymphocytes # (Auto) 2.4, Monocytes # (Auto) 1.5H, Eosinophils # (Auto) 0.1, Basophils # (Auto) 0.1, Nucleated Red Blood Cells % (auto) 0.0, D-Dimer, Quantitative 2109.83H, Anion Gap 9, Glomerular Filtration Rate > 60.0, Calcium Level 9.5, Total Creatine Kinase 36, Creatine Kinase MB < 1.0, Creatine Kinase MB Relative Index 2.77, Troponin I < 0.02, Human Chorionic Gonadotropin, Qual NEGATIVE, Influenza Type A (RT-PCR) N EGATIVE, Influenza Type B (RT-PCR) NEGATIVE 03/10/19 05:59: Lactic Acid Level 0.8 03/10/19 07:25: Prothrombin Time 14.8H, Prothromb Time International Ratio 1.18, Activated Partial Thromboplast Time 31.3 03/10/19 12:20: Bedside Glucose (Misc Panel) 108H CBC/BMP Laboratory Tests 03/10/19 05:09 Microbiology Microbiology 03/10/19 Blood Culture, Received Pending 03/10/19 Blood Culture, Received Pending POLY CALDERA MD Mar 10, 2019 13:03
[2019-03-10] MEDS: NICOTINE 21MG/24HR 1 EA TRANSDERMAL TD SCH (13:43)
[2019-03-10] MEDS ORDERED: ONDANSETRON 4MG/2ML VIAL (J2405) IV PRN (13:45)
[2019-03-10 14:00] VITALS: BP 144/90
[2019-03-10] MEDS ORDERED: AZITHROMYCIN 250 MG TAB PO ONE (14:00)
[2019-03-10] MEDS: HumaLOG INSULIN (NovoLOG) PER UNIT SC SCH ×3 (14:12→21:00)
[2019-03-10] MEDS: tiZANidine 4 MG TAB PO PRN ×2 (14:12→22:39)
[2019-03-10] MEDS: APIXABAN 5 MG TAB (ELIQUIS) PO SCH ×2 (14:14→20:25)
[2019-03-10] MEDS ORDERED: ELIQ5TAB PO (14:52)
[2019-03-10 15:36] LABS: ALBUMIN 2.7 GM/DL (3.2-5.2); ALT/SGPT 10 U/L (12-78); BILIRUBIN,DIRECT < 0.1 MG/DL (0.0-0.2); BILIRUBIN,TOTAL 0.1 MG/DL (0.2-1.0); LIPASE 87 U/L (73-393); TOTAL PROTEIN 6.8 GM/DL (6.4-8.2)
[2019-03-10] MEDS: IPRATROPIUM 0.5MG/ALBUTEROL 2.5MG INH SOL UD 3ML (DUONEB)(J7620) INH SCH ×2 (16:02→19:34)
[2019-03-10 21:00] VITALS: BP 133/92
[2019-03-10] MEDS: PROMETHAZINE 25 MG TAB PO PRN (21:27)
[2019-03-10] MEDS ORDERED: NS 250 ML IV ONE (21:30)
[2019-03-11] VITALS (7 sets, daily range): BP systolic 106–142; BP diastolic 56–86
[2019-03-11] MEDS: IPRATROPIUM 0.5MG/ALBUTEROL 2.5MG INH SOL UD 3ML (DUONEB)(J7620) INH SCH ×3 (00:35→14:35)
[2019-03-11] MEDS: MOXIFLOXACIN 400 MG TAB PO SCH (05:54)
[2019-03-11] MEDS: LEVOTHYROXINE 25MCG TABLET (0.025MG) PO SCH (05:54)
[2019-03-11] MEDS: HumaLOG INSULIN (NovoLOG) PER UNIT SC SCH ×4 (07:30→20:01)
[2019-03-11 07:42] LABS: HEMATOCRIT 31.8 % (36.0-47.0); MEAN CORPUSCULAR HEMOGLOBIN 24.9 pg (27.0-33.0); MEAN CORPUSCULAR HGB CONC 31.4 g/dl (32.0-36.5); MEAN CORPUSCULAR VOLUME 79.1 fl (80.0-96.0); PLATELET COUNT, AUTOMATED 454 10^3/uL (150-450); RED BLOOD COUNT 4.02 10^6/uL (4.00-5.40); WHITE BLOOD COUNT 18.8 10^3/uL (4.0-10.0)
[2019-03-11] MEDS: tiZANidine 4 MG TAB PO PRN ×2 (08:25→20:06)
[2019-03-11 08:29] LABS: BLOOD UREA NITROGEN 8 MG/DL (7-18); CALCIUM LEVEL 9.1 MG/DL (8.5-10.1); CARBON DIOXIDE LEVEL 24 MEQ/L (21-32); CHLORIDE LEVEL 108 MEQ/L (98-107); CREATININE FOR GFR 0.62 MG/DL (0.55-1.30); GLOMERULAR FILTRATION RATE > 60.0 (>60); GLUCOSE, FASTING 106 MG/DL (70-100); POTASSIUM SERUM 3.8 MEQ/L (3.5-5.1); SODIUM LEVEL 140 MEQ/L (136-145)
[2019-03-11] MEDS ORDERED: AZITHROMYCIN 250 MG TAB PO SCH (09:00)
[2019-03-11] MEDS ORDERED: INFLUENZA QUADRIVALENT PF VACCINE 0.5ML SYRINGE (90686) IM ONE (09:00)
[2019-03-11] MEDS ORDERED: AMOXICILLIN 875 MG TAB PO SCH (09:00)
[2019-03-11] MEDS: APIXABAN 5 MG TAB (ELIQUIS) PO SCH ×2 (10:39→20:11)
[2019-03-11] MEDS: NICOTINE 21MG/24HR 1 EA TRANSDERMAL TD SCH (10:40)
[2019-03-11 11:46] LABS: DRVV SCREEN 160.4 SEC; PTT LUPUS TYPE ANTICOAG SCREEN 3.9 (0-1.2)
[2019-03-11] MEDS ORDERED: MOM 30ML SUSPENSION UDC PO PRN (12:00)
[2019-03-11] MEDS: SENOKOT S TAB PO SCH ×2 (12:44→20:10)
[2019-03-11 12:47] LABS: DRVV CONFIRM 115.6 SEC; LUPUS CONFIRM RATIO 3.1
[2019-03-11 12:54] LABS: NORMALIZED RATIO 1.26 (0.00-1.20)
[2019-03-11] MEDS: ACETAMINOPHEN TAB 650MG DOSE (2X325MG) PO PRN (13:37)
[2019-03-11] MEDS ORDERED: NS 1,000 ML IV SCH (15:00)
[2019-03-11] MEDS ORDERED: LEVALBUTEROL 1.25 MG/0.5 ML CONCENTRATE NEB INH PRN (17:00)
[2019-03-11] MEDS: LEVALBUTEROL 1.25 MG/0.5 ML CONCENTRATE NEB INH SCH ×2 (20:31→23:58)
--- NOTE | 2019-03-11 20:58 | ECHO ---
DATE OF PROCEDURE: 03/11/2019 REFERRING PHYSICIAN: Dr. Zelaya INDICATION: Pulmonary hypertension. Large pulmonary embolus. HEIGHT: 173 cm WEIGHT: 122 kg DIMENSIONS: IVS: 1.0 LV: 4.7 LVPW: 1.0 LA: 3.8 Aorta: 2.9 IVC: 1.6 Mitral E wave velocity: 104 E prime septal: 12.8 E prime lateral: 9.6 FINDINGS The study is of limited technical quality corresponding to patient's body habitus. The patient is in sinus tachycardia with ventricular rate between 125 and 130 bpm. Left ventricle is normal size and overall normal systolic function, I estimate ejection fraction (EF) around 65-70%. Right ventricle was poorly seen but does not appear enlarged. Both atria appear normal. Aortic, mitral and tricuspid valves appear normal. Pulmonic valve was not well seen. Trivial pericardial effusion is noted. Inferior vena cava is normal size and appropriately collapses with inspiration. Aortic root and aortic arch appear normal. Abdominal aorta was not well seen. Doppler interrogation reveals competent aortic, mitral and tricuspid valves. Mitral inflow pattern indicates fusion of E and A wave due to underlying tachycardia precluding proper assessment of diastolic function, but tissue Doppler velocities of mitral annulus are preserved. CONCLUSION 1. Study is of limited technical quality. 2. Normal left ventricle (LV) size and systolic function, probably normal diastolic function. 3. No significant valvular disease. 4. Right ventricle does not appear enlarged. 5. Normal central venous pressure. 6. Unable to estimate pulmonary artery pressure. 7. Trace pericardial effusion. COMMENT Subacute bacterial endocarditis (SBE) prophylaxis is not recommended. The study is not overly supportive of diagnosis of large pulmonary embolism.
[2019-03-12 04:00] VITALS: BP 144/92
[2019-03-12] MEDS: LEVOTHYROXINE 25MCG TABLET (0.025MG) PO SCH (05:01)
[2019-03-12] MEDS: PROMETHAZINE 25 MG TAB PO PRN (05:01)
[2019-03-12] MEDS: tiZANidine 4 MG TAB PO PRN ×2 (05:02→15:40)
[2019-03-12] MEDS: MOXIFLOXACIN 400 MG TAB PO SCH (05:05)
[2019-03-12 05:38] LABS: HEMOGLOBIN 9.3 g/dl (12.0-15.5); MEAN CORPUSCULAR HEMOGLOBIN 24.2 pg (27.0-33.0); MEAN CORPUSCULAR VOLUME 80.7 fl (80.0-96.0); PLATELET COUNT, AUTOMATED 436 10^3/uL (150-450); RED BLOOD COUNT 3.84 10^6/uL (4.00-5.40); WHITE BLOOD COUNT 17.3 10^3/uL (4.0-10.0)
[2019-03-12 06:00] LABS: BLOOD UREA NITROGEN 9 MG/DL (7-18); CALCIUM LEVEL 9.1 MG/DL (8.5-10.1); CARBON DIOXIDE LEVEL 25 MEQ/L (21-32); CHLORIDE LEVEL 108 MEQ/L (98-107); CREATININE FOR GFR 0.77 MG/DL (0.55-1.30); GLOMERULAR FILTRATION RATE > 60.0 (>60); GLUCOSE, FASTING 117 MG/DL (70-100); POTASSIUM SERUM 3.5 MEQ/L (3.5-5.1); SODIUM LEVEL 139 MEQ/L (136-145)
[2019-03-12] MEDS: LEVALBUTEROL 1.25 MG/0.5 ML CONCENTRATE NEB INH SCH ×4 (07:32→20:36)
[2019-03-12 08:00] VITALS: BP 137/64
[2019-03-12] MEDS: SENOKOT S TAB PO SCH ×2 (08:59→20:56)
[2019-03-12] MEDS: APIXABAN 5 MG TAB (ELIQUIS) PO SCH ×2 (08:59→20:56)
[2019-03-12] MEDS: NICOTINE 21MG/24HR 1 EA TRANSDERMAL TD SCH (09:00)
[2019-03-12] MEDS: HumaLOG INSULIN (NovoLOG) PER UNIT SC SCH ×4 (09:00→20:58)
[2019-03-12] MEDS: KETOROLAC 30 MG/ML VIAL (J1885) IV PRN (09:01)
--- NOTE | 2019-03-12 09:01 | REP ---
Clinical: Shortness of breath. Comparison: 03/10/2019. Findings: Right lower lobe opacity consistent with moderate to large effusion and atelectasis/consolidation. Findings increased from prior examination. Left hemithorax appears relatively clear. No pneumothorax. Skeletal structures intact. Impression: [id number] right pleural effusion and right mid to lower lobe opacities increased from prior examination. Electronically Signed by Favian Monroe MD 03/12/2019 08:52 A
[2019-03-12] MEDS ORDERED: metOLazone 5 MG TAB PO ONE (11:15)
--- NOTE | 2019-03-12 11:58 | IPN ---
DATE: 03/11/2019 The patient complains of palpitations. No dizziness or lightheadedness. When she ambulates, she is noted to be hypoxic down into the 80s with ambulation despite 2 liters of oxygen. Yesterday, the patient's blood pressure was 96 to 98 systolic and was given normal saline 500 mL bolus. The patient did have slight hemoptysis today and has been switched over to apixaban from intravenous heparin. The patient otherwise denies any bright red blood per rectum, melena or black tarry stools. PHYSICAL EXAMINATION: VITAL SIGNS: Temperature 98, pulse 106, respiratory rate 28, blood pressure 118/78, 93% on 2 liters nasal cannula. GENERAL: Awake, alert, oriented times three. Answering questions appropriately. No conversational dyspnea. Able to complete full sentences. No use of respiratory accessory muscles. No tripod positioning. Moist mucous membranes. No cervical lymphadenopathy, thyromegaly. LUNGS: Diminished with bilateral wheezing. HEART: S1, S2. Sinus tachycardia. ABDOMEN: Obese, soft, nontender, nondistended. EXTREMITIES: No cyanosis, clubbing or any pitting edema. LABORATORY DATA: White count 18.8, hemoglobin 10, hematocrit 31, platelet count 454. Sodium 140, potassium 3.8, chloride 108, bicarbonate 24, BUN 8, creatinine 0.62, glucose of 106. C-reactive protein of 29.2. ASSESSMENT AND PLAN: 23-year-old female with OCP use and smoking one pack a day, morbid obesity, asthma, diabetes, depression, hypertension, chronic back pain who complains of productive cough, subjective fevers, was given 10 days of amoxicillin with no improvement, was found to be tachycardic with elevated D-dimer. CT of the chest shows large central occlusive right lower lobe pulmonary artery embolism and clot extending to the right middle lobe arteries without evidence of right heart strain. The patient was given intravenous heparin, currently transitioned to apixaban, awaiting 2-D echo to rule out right ventricular strain. ACTIVE ISSUES: 1. Large pulmonary embolism in the setting of active smoking and oral contraceptive use. She is currently on Eliquis 10 mg for 7 days followed by 5 mg twice a day for 3 months' time. She has been advised about smoking cessation and to find a different contraceptive method, potentially an IUD due to increased risk of pulmonary embolism and deep vein thrombosis (DVT) with oral contraceptive use. 2. Community-acquired pneumonia. Was on Levaquin. The patient is to complete Avelox for a full course. 3. Hypotension, concerning for right ventricular strain and hemodynamic compromise due to large pulmonary embolism. 2-D echo has been ordered stat. Dr. Weber has been made aware of the patient's case and will review. She would benefit from direct thrombolytic therapy. 4. Hypertension. The patient's blood pressure medications have been held due to low blood pressure. 5. Active smoking. The patient received smoking cessation counseling, currently on nicotine patch 21 mg daily. 6. Chronic back pain. On Zanaflex as needed. 7. Hypothyroidism. On Synthroid. Check TSH level. 8. Bowel regimen. The patient is not to have any constipation because increased strain could cause possible syncopal episode, therefore currently on bowel regimen. MTDD
[2019-03-12 12:00] VITALS: BP 126/72
[2019-03-12] MEDS ORDERED: FUROSEMIDE 40 MG/4 ML VIAL (J1940) IV ONE ×2 (12:00→18:00)
[2019-03-12 16:00] VITALS: BP 138/83
[2019-03-12 20:00] VITALS: BP 115/59
[2019-03-12 23:59] VITALS: BP 146/84
[2019-03-13] MEDS: tiZANidine 4 MG TAB PO PRN ×2 (00:05→09:59)
[2019-03-13] MEDS: PROMETHAZINE 25 MG TAB PO PRN ×2 (00:06→08:47)
[2019-03-13 04:00] VITALS: BP 119/62
[2019-03-13] MEDS: LEVALBUTEROL 1.25 MG/0.5 ML CONCENTRATE NEB INH SCH ×5 (04:00→15:23)
--- NOTE | 2019-03-13 04:29 | IPN ---
DATE: 03/12/2019 The patient was transferred to PCU yesterday due to persistent sinus tachycardia 125 to 140. The patient complained of generalized weakness, shortness of breath when she ambulates 5 to 10 feet from bedroom to the bathroom. Echocardiogram was obtained yesterday due to complaints of increasing shortness of breath. Echocardiogram did not show any RV strain, PA pressure could be estimated. Normal central venous pressure and right ventricle did not enlarged. There is a normal left ventricular size and systolic function and probably a normal diastolic function. Overnight, she remained in sinus tachycardia. Still complains of occasional hemoptysis, but nothing sustained. Hemoglobin appears stable at 9.3 and hematocrit of 31. The patient did receive some nebulizer treatment due to persistent complaints of shortness of breath with no significant improvement. Repeat chest x-ray this morning shows a moderate to large right pleural effusion and right mid to lower lobe opacity increased from prior exam. She is continued on antibiotics for presumed pneumonia. VITAL SIGNS: Temperature 97.3, pulse 94, respiratory rate 18, blood pressure 137/64, 91% on 2 liters nasal cannula. Generally, the patient is lying supine at 45 degree angle. No use of respiratory or accessory muscles. Able to speak in full sentences. LUNGS: Diminished breath sounds on the right with crackles and left is clear. HEART: S1 and S2, sinus tachycardia. Abdomen is obese, soft, nontender, nondistended. Extremities: No cyanosis, clubbing. No pitting edema. Echocardiogram read by Dr. Christel Fernandez, 03/11/2019: Normal left ventricular size and systolic function. Probably normal diastolic function. No significant valvular disease. Right ventricle does not appear enlarged. Normal central venous pressure. Unable to estimate pulmonary artery pressure and trace pericardial effusion. LABORATORY DATA: White count 17.3, hemoglobin 9.3, hematocrit 31, platelet count 436. Sodium 139, potassium 3.5, chloride 108, bicarbonate 25, BUN 9, creatinine 0.77, glucose of 117. Sputum culture is pending. Two sets of blood culture, no growth after 48 hours. Chest x-ray 03/12 shows moderate to large right pleural effusion and right mid to lower lobe opacities, increased from prior examination. ASSESSMENT AND PLAN: This is a 23-year-old female with history of diabetes, hypothyroidism, hypertension, depression and chronic back pain, morbid obesity with smoking a pack a day of cigarettes and was on an oral contraceptive patch, was seen at urgent care for an ear infection, completed 10 days of amoxicillin, represented with dyspnea on exertion, productive cough and fevers for two days, as well as chest pain. She was found to have low grade temperature of 100.2, white count of 15.4. Electrocardiogram (EKG) shows sinus tachycardia, flu was negative. Chest CT shows a right central occlusive right lower lobe pulmonary artery with patchy ground glass opacity and clot extending to the right middle lobe artery without evidence of right heart strain. Echocardiogram shows normal right ventricle, which does not appear enlarged. Left ventricular size and systolic function, unable to estimate pulmonary artery pressure with trace pericardial effusion. Normal central venous pressure. The patient was given intravenous heparin and transitioned to Eliquis loading dose of 10 mg twice a day to be transitioned to 5 mg twice a day. She remained minimally ambulatory, as she continues to have significant tachycardia with ambulation and hypoxia dropping down to the mid 80s with her oxygen saturations when she ambulates 15 to 20 feet. She remains dependent on oxygen, currently at 2 liters nasal canula, but no complaints of near syncope or dizziness, lightheadedness. VITAL SIGNS: Temperature 98.2, pulse 110, respiratory rate 16, blood pressure 144/92, 96% on 2 liters. IMPRESSION: 1. Large pulmonary embolism in the setting of active smoking and oral contraceptive patch. The patient did receive intravenous heparin, currently transitioned to Eliquis loading dose of 10 mg twice a day for 7 days followed by 5 mg twice a day for three months. The patient has been advised about smoking cessation, to find a different contraceptive method, potentially an IUD due to increase risk of pulmonary embolus (PE) and deep vein thrombosis (DVT) with oral contraceptive patch. I have discussed her case with cant gang sawyer, Dr. Tahmina Gray who agreed with current management since there are no studies that show superiority of Lovenox versus oral anticoagulants even for large pulmonary embolism. I have also discussed this case with interventional radiologist, Dr. Weber, to evaluate for possible need for directive thrombolytic therapy in light of the patient's episodes of low blood pressure two days ago when she was given fluid bolus. Since the patient's blood pressure was not maintained with a MAP less than 60, the patient is not a candidate for thrombolytic therapy. Two dimensional echocardiogram did not show any significant right ventricular strain, so the patient is therefore continued on present management. 2. Moderate pleural effusion with possible community acquired pneumonia currently on antibiotics; and due to recent fluid boluses in light of possibly elevated pressures due to large pulmonary embolism, the patient has developed fluid overload for which she will be given intravenous Lasix. Strict input and output, daily weights and continue to check her pulse oximetry with ambulation. We are continuing monitoring her for worsening dyspnea on exertion or significant hypotension, as well as any near syncopal episodes during this admission. Physical therapy has been asked to assess in evaluating her for home safety. 3. Hypertension. Will continue to monitor for now. Currently 115 to 137 systolic. She has not been resumed on her home dose of antihypertensives due to episodes of low blood pressure two days ago requiring fluid resuscitation. 4. Hypothyroidism. Resumed on her home dose of levothyroxine at 25 mcg daily 5. Type 2 diabetes on insulin sliding scale for now. 6. Active tobacco use. Tobacco cessation counseling has been provided. Currently on Nicoderm patch daily. 7. Bowel regimen has been provided as the patient has an increased risk of near syncope if she strains with known history of large pulmonary embolism (PE))
[2019-03-13 05:17] LABS: BASO # 0.1 10^3/uL (0.0-0.2); BASO % 0.4 % (0.0-1.0); EOS # 0.1 10^3/uL (0.0-0.5); EOS % 0.8 % (0.0-3.0); HEMATOCRIT 30.7 % (36.0-47.0); HEMOGLOBIN 9.6 g/dl (12.0-15.5); LYMPH # 2.5 10^3/uL (1.5-5.0); LYMPH % 14.9 % (24.0-44.0); MEAN CORPUSCULAR HEMOGLOBIN 24.2 pg (27.0-33.0); MEAN CORPUSCULAR HGB CONC 31.3 g/dl (32.0-36.5); MEAN CORPUSCULAR VOLUME 77.3 fl (80.0-96.0); MONO # 1.7 10^3/uL (0.0-0.8); MONO % 10.1 % (0.0-5.0); NEUTROPHILS # 12.2 10^3/uL (1.5-8.5); NEUTROPHILS % 73.3 % (36.0-66.0); PLATELET COUNT, AUTOMATED 521 10^3/uL (150-450); RED BLOOD COUNT 3.97 10^6/uL (4.00-5.40); WHITE BLOOD COUNT 16.7 10^3/uL (4.0-10.0)
[2019-03-13 05:35] LABS: ERYTHROCYTE SEDIMENTATION RATE 106 mm/hr (0-20)
[2019-03-13 05:47] LABS: BLOOD UREA NITROGEN 16 MG/DL (7-18); CALCIUM LEVEL 9.4 MG/DL (8.5-10.1); CARBON DIOXIDE LEVEL 25 MEQ/L (21-32); CHLORIDE LEVEL 99 MEQ/L (98-107); CREATININE FOR GFR 0.96 MG/DL (0.55-1.30); GLOMERULAR FILTRATION RATE > 60.0 (>60); GLUCOSE, FASTING 118 MG/DL (70-100); MAGNESIUM LEVEL 2.1 MG/DL (1.8-2.4); POTASSIUM SERUM 3.2 MEQ/L (3.5-5.1); SODIUM LEVEL 134 MEQ/L (136-145)
[2019-03-13] MEDS: LEVOTHYROXINE 25MCG TABLET (0.025MG) PO SCH (06:21)
[2019-03-13] MEDS: MOXIFLOXACIN 400 MG TAB PO SCH (06:21)
[2019-03-13 08:00] VITALS: BP 113/62
[2019-03-13] MEDS ORDERED: POTASSIUM CHLORIDE 10 MEQ SR TABLET PO ONE (09:00)
[2019-03-13] MEDS: APIXABAN 5 MG TAB (ELIQUIS) PO SCH (09:00)
--- NOTE | 2019-03-13 09:34 | REP ---
Clinical: Follow up pleural effusion. Technique: PA and lateral. Comparison: 03/12/2019 at 08:37 a.m. Findings: Moderate right hydropneumothorax is suggested with air-fluid level identified. Underlying bilateral infiltrates (right greater than left) similar to prior examination. Impression: Current examination suggests moderate right hydropneumothorax with air-fluid level and bibasilar opacities (right greater than left). Electronically Signed by Favian Monroe MD 03/13/2019 09:24 A
[2019-03-13] MEDS: KETOROLAC 30 MG/ML VIAL (J1885) IV PRN (09:58)
[2019-03-13] MEDS: NICOTINE 21MG/24HR 1 EA TRANSDERMAL TD SCH (09:58)
[2019-03-13] MEDS: SENOKOT S TAB PO SCH (09:59)
[2019-03-13] MEDS: HumaLOG INSULIN (NovoLOG) PER UNIT SC SCH ×2 (10:09→12:00)
[2019-03-13] MEDS ORDERED: ISOVUE-370 76% 100ML VIAL (Q9967) As Ordered ONE (10:26)
--- NOTE | 2019-03-13 10:29 | IPNPDOC ---
Date Seen The patient was seen on 03/13/19. Progress Note CXR 03/13/19: MODERATE RIGHT HYDROPNEUMOTHORAX PLAN: CT CHEST WITHOUT CONTRAST THORACIC SURGERY DR. HOLLEY CONSULTED FOR MANAGEMENT HOLD EVAQU[facility] FOR NOW TRANSFER TO ICU NPO AWAIT RECOMMEDATIONS FROM DR. HOLLEY MOTHER,RADHA ROSS, IS AWARE OF TRANSFER AND NEW FINDINGS. VS, I&O, 24H, Fishbone Vital Signs/I&O Vital Signs Date Time Temp Pulse Resp B/P (MAP) Pulse Ox O2 Delivery O2 Flow Rate FiO2 03/13/19 08:00 97.5 107 18 113/62 (79) 92 Nasal Cannula 2.0 I&O- Last 24 Hours up to 6 AM 03/13/19 06:00 Intake Total 1580 ml Output Total 2125 ml Balance -545 ml Laboratory Data 24H LABS Laboratory Tests 2 03/12/19 11:47: Bedside Glucose (Misc Panel) 101 03/12/19 16:49: Bedside Glucose (Misc Panel) 110H 03/12/19 20:52: Bedside Glucose (Misc Panel) 95 03/13/19 04:57: Immature Granulocyte % (Auto) 0.5, Neutrophils (%) (Auto) 73.3H, Lymphocytes (%) (Auto) 14.9L, Monocytes (%) (Auto) 10.1H, Eosinophils (%) (Auto) 0.8, Basophils (%) (Auto) 0.4, Neutrophils # (Auto) 12.2H, Lymphocytes # (Auto) 2.5, Monocytes # (Auto) 1.7H, Eosinophils # (Auto) 0.1, Basophils # (Auto) 0.1, Nucleated Red Blood Cells % (auto) 0.0, Erythrocyte Sedimentation Rate 106H, Anion Gap 10, Glomerular Filtration Rate > 60.0, Calcium Level 9.4, Magnesium Level 2.1, C-Reactive Protein, Quantitative 27.10H CBC/BMP Laboratory Tests 03/13/19 04:57 Microbiology Microbiology 03/11/19 Gram Stain - Final, Complete 03/11/19 Sputum Culture - Final, Complete 03/10/19 Blood Culture - Preliminary, Resulted No Growth after 72 hours. All specime... 03/10/19 Blood Culture - Preliminary, Resulted No Growth after 72 hours. All specime... MIRIAM GARCIA MD Mar 13, 2019 10:29
--- NOTE | 2019-03-13 10:50 | REP ---
Clinical: Follow up pulmonary embolus and pleuroparenchymal changes. Comparison: 03/10/2019. Technique: Axial contrast enhanced images from the thoracic inlet to the upper abdomen using 100 ml Isovue 370 intravenous contrast material with coronal and sagittal re-formations. Findings: Examination is suboptimal for evaluation of the pulmonary arteries, but large occlusive thrombus involving the main right lower lobe pulmonary artery with possible extension into the right middle lobe artery is again suggested and essentially unchanged. A new moderate right pleural effusion is now identified and increased areas of consolidation with air bronchograms are involve the right lower lobe and right middle lobe as well as new area of consolidation in the left lower lobe. Thoracic aorta, heart and pericardium appear relatively normal / stable. Musculoskeletal structures are intact. Impression: 1. Limited evaluation for pulmonary embolus although previously identified large emboli involving the main right lower lobe pulmonary artery with possible extension into the right middle lobe pulmonary artery are again suggested/stable. 2. New moderate right pleural effusion and increased areas of consolidation/atelectasis are identified in the right middle lobe, right lower lobe, and now within the left lower lobe. Electronically Signed by Favian Monroe MD 03/13/2019 10:42 A
[2019-03-13 11:17] VITALS: BP 115/66
[2019-03-13] MEDS ORDERED: HEPARIN DRIP 25,000 UNITS in IV 1 EA IV SCH (11:21)
[2019-03-13] MEDS ORDERED: HEPARIN SOD (PORCINE) 5000 UNITS/ML VIAL IV PRN (11:30)
[2019-03-13 11:56] LABS: INR 2.11; PROTHROMBIN TIME 23.4 SECONDS (11.8-14.0)
[2019-03-13 11:57] LABS: PARTIAL THROMBOPLASTIN TIME 50.8 SECONDS (25.0-38.4)
[2019-03-13 12:00] VITALS: BP 96/60
[2019-03-13 13:05] VITALS: BP 101/57
[2019-03-13 14:00] VITALS: BP 104/60
[2019-03-13] MEDS ORDERED: PERCOCET 5MG/325MG TAB PO PRN (16:15)
[2019-03-13] MEDS ORDERED: MORPHINE 2 MG/ML 1ML VIAL (J2270) IV PRN (16:15)
[2019-03-13] MEDS ORDERED: PIPERACILLIN/TAZOBACTAM SOD 3.375 GM in D5W MINI-BAG PLUS 50 ML IV SCH (17:00)
[2019-03-13] MEDS: ACETAMINOPHEN TAB 650MG DOSE (2X325MG) PO PRN (18:03)
--- NOTE | 2019-03-13 18:53 | DSES ---
DATE OF ADMISSION: 03/10/2019 DATE OF DISCHARGE: 03/13/2019 CONSULTANTS DURING THIS ADMISSION: By telephone consult: Thoracic surgeon, Dr. Je Mccoy; radiologist, Dr. Favian Monroe. Pulmonologists, Dr. Tahmina Gray and Dr. Manohar Brown, have both reviewed the CT chest. PRIMARY DISCHARGE DIAGNOSES: 1. Right lower lobe moderate loculated effusion, most likely parapneumonic versus pulmonary infarct with hemorrhage. 2. Large right lower lobe pulmonary artery embolism. 3. Acute hypoxic respiratory failure secondary to pulmonary embolism. 4. Community-acquired pneumonia in the right lower lobe. 5. Abnormal EKG with sinus tachycardia secondary to pulmonary embolism. 6. Active tobacco smoker, one pack a day. 7. Hypokalemia, low potassium level. 8. Hyponatremia, low sodium level. 9. Hypothyroidism. 10. Hypertension as outpatient. 11. Morbid obesity. 12. Type 2 diabetes. 13. Depression. 14. Chronic back pain. DISCHARGE MEDICATIONS: - intravenous heparin drip - morphine 2 mg IV every 2 hours as needed for breakthrough pain - Percocet one tablet every 4 hours as needed for pain - Xopenex 1.25 mg every 4 hours routinely, every 1 hour as needed for shortness of breath - Senokot-S one tablet by mouth twice a day - milk of magnesium 30 mL by mouth every 4 hours as needed for constipation - Zosyn 3.375 every 6 hours - nicotine patch 21 mg daily - Zanaflex 4 mg three times a day as needed for muscle spasm - Phenergan 25 mg by mouth every 6 hours as needed for nausea - Humalog insulin sliding scale before food and nightly HOSPITAL COURSE: This is a 23-year-old female with history of morbid obesity, body mass index (BMI) of 39.7, diabetes, hypertension, metabolic syndrome, active smoker, on oral contraceptive patch, depression, chronic back pain, childhood asthma, smokes a pack a day of cigarettes, presented to the emergency room with complaints of shortness of breath, fevers at home, low grade 100.2. Patient was recently treated at urgent care for an ear infection, completed 10 days of amoxicillin, continued to complain of shortness of breath, right-sided pleuritic chest pain, and productive of cough of white thick sputum. In the emergency room (ER), patient was found to have a low-grade temperature of 100.2, tachycardia. Due to risk factors of oral contraceptives and active smoking, D-dimer was obtained which was elevated. CT chest subsequently done showed a large central occlusive right lower lobe pulmonary artery embolism, patchy ground glass opacities, and clot extending in the right middle lobe arteries without evidence of right heart strain. EKG showed persistent sinus tachycardia. Patient had had no history of immobility, hypercoagulable state, prolonged travel, or family history of deep venous thrombosis (DVT) or pulmonary embolus (PE), recent , or weight loss. Urine screen was negative. Patient was also given DuoNebs, albuterol, and treated for community-acquired pneumonia with intravenous ceftriaxone along with intravenous heparin. Lower extremities were negative for DVT bilaterally. Patient was admitted to progressive care unit and transitioned to medical surgical floor as she was deemed to be stable after being on heparin drip for 2 days and changed to Eliquis 10 mg twice a day until 03/16/2019, and 5 mg twice a day starting on 03/17/2019. While on the medical floor, patient complained of occasional hemoptysis, persistent dyspnea on exertion, especially with ambulation more than 5-7 feet. Patient remained tachycardic with ventricular rate of 125-135 and to 140 at times, unable to go up any steps. She did have one episode of hypotension in which her blood pressure dropped down to 98 systolic while she was sleeping and received a normal saline IV bolus of 500 times two. She then developed worsening shortness of breath with exertion and repeated a chest x-ray on 03/12/2019, which showed moderate to large right pleural effusion and right mid to lower lobe opacities increased from prior examination. Due to recent IV fluid given of a total of 1.6 liters, the patient was given intravenous Lasix for which she diuresed 1.75 liters and was negative 45 mL. Due to concerns of right-sided heart failure, echocardiogram was performed which showed normal ejection fraction of 65-70%, probably normal diastolic function, normal left ventricle (LV) size and systolic function, no significant valvular disease, right ventricle does not appear enlarged, normal central venous pressure, unable to estimate pulmonary artery pressure, and trace pericardial effusion. Patient continued to have significant respiratory distress with ambulation, so repeat chest x-ray to check for resolution of the pleural effusion, which was initially thought to either be edema from recent possible fluid overload from IV fluids given for hypotension versus parapneumonic effusion. Repeat chest x-ray shows moderate right hydropneumothorax read by Dr. Monroe with underlying bilateral infiltrates right greater than left, similar to prior exam. Dr. Je Mccoy, thoracic surgery, was consulted who reviewed the films and recommended CT of the chest and to stop the patient's Eliquis and change to IV heparin for now. Review of the new CT, which was repeated on 03/13/2019, showed large emboli involving the right main right lower lobe pulmonary artery with possible extension into the right middle lobe pulmonary artery are again suggested and stable. There is new moderate right pleural effusion and increased areas of consolidation and atelectasis in the right middle lobe, right lower lobe, and now with the left lower lobe. Review of the CT chest with metal polisher and buffer apprentice, Dr. Gray, as well as metal polisher and buffer apprentice this evening, Dr. Manohar Brown, showed a possible loculated parapneumonic effusion and recommendations are for interventional radiology to place a drainage catheter, pigtail catheter to remove the debris. At this time, both Dr. Je Mccoy, as well as the two pulmonologists, agree that this service is unavailable in [place]. Per Dr. Monroe, radiologist automotive parts salesperson, this service will be available on Sunday. At this time, patient remains stable. Her vital signs remain unchanged with sinus tachycardia, ventricular rate of 120-135 increases to about 135-140 sinus when she is ambulating over 7 feet. She remains with saturations of 92-94% on 2 liters nasal cannula, blood pressure is 104/60 to 144/92. Per Dr. Gray, she may benefit from incentive spirometry and pain control as she is probably splinting and not reading well. PHYSICAL EXAMINATION: On discharge: Temperature 99, pulse 120, sinus tachycardia, respiratory rate 18, blood pressure 115/66, 92% on 2 liters nasal cannula. Generally: Patient is able to speak in full sentences, no use of respiratory accessory muscles. Patient is not cyanotic, no jaundice. She has multiple piercings on her lips. No jugular venous distention (JVD), no thyromegaly, or cervical lymphadenopathy. Lungs: Diminished breath sounds on the right lower lobe, clear on the left. Sinus tachycardia, no murmurs, rubs, or gallops. Abdomen is obese, soft, nontender, nondistended. Extremities have no pitting edema. LABORATORY DATA: White count 16.7, hemoglobin 9.6, hematocrit 30.7, platelet count 521, sodium 134, potassium 3.2, chloride 99, bicarbonate 25, BUN 16, creatinine 0.96, glucose of 118, magnesium 2.1, C-reactive protein 27.1. Microbiology: 03/10/2019, two sets of blood cultures no growth after 72 hours. Sputum culture 03/11/2019, normal patel present. IMAGING STUDIES: Chest x-ray 03/10/2019 shows poor level of inspiration, right perihilar platelike atelectasis, no definite infiltrate. CT chest with contrast shows a large PE, central mass like density in the right perihilar region likely due to a large central occlusive clot in the right lower lobe pulmonary artery with no flow seen in the segmental or subsegmental pulmonary artery. There are patchy right lower lobe infiltrates overall markedly limited for evaluation of pulmonary arteries. Aorta is unremarkable. No CT evidence of right heart strain. Study suboptimal for evaluation of pulmonary arteries and thus segmental and subsegmental PEs involving the right upper, left upper, left lower lobes cannot be excluded. Hypoventilatory changes with linear atelectatic changes seen in the right upper and left lower lobes. 03/10/2019 vascular ultrasound of bilateral lower extremities shows no DVT demonstrated in either lower extremity. Repeat chest x-ray 03/12/2019, shows moderate to large right pleural effusion and right mid to lower lobe opacities increased from prior examination. Repeat chest x-ray 03/13/2019, shows moderate right hydropneumothorax with air fluid level and bibasilar opacities right greater than left. 03/13/2019 CT chest without contrast suboptimal for evaluation of pulmonary arteries, but large occlusive thrombus involving the main right lower lobe pulmonary artery with possible extension into the right middle lobe artery is again suggested and essentially unchanged. A new moderate right pleural effusion is now identified and increased areas of consolidation with air bronchograms involving the right lower lobe, right middle lobe, and new area of consolidation in the left lower lobe. Thoracic aorta, heart, and pericardium appear relatively normal and stable. Musculoskeletal structures are intact. New moderate right pleural effusion and increased areas of consolidation and atelectasis in the right middle lobe, right lower lobe, and now within the left lower lobe. TIME SPENT ON DISCHARGE: 45 minutes MTDD
--- NOTE | 2019-03-14 08:01 | IPN ---
DATE: 03/13/2019 Patient complained of significant tachycardia and palpitations yesterday while walking outside her room working with physical therapy with desaturation into the mid 80s despite two liters of oxygen. Patient denies any near syncopal episodes, lightheadedness during this episode. She has 3-4 steps to get into the home and usually lives with her boyfriend and her brother. Patient still has occasional hemoptysis when she coughs. No fever but had a temperature of 100.0 yesterday. Repeat chest x-ray showed moderate pleural effusion on the right and slightly increased in the right mid to lower lobe opacities. Patient was given intravenous Lasix to improve her hypoxia with 1.675 liters out. Current weight is 118.4 kilograms from a peak weight of 122.3 kg. Review of her echo showed no right ventricular strain with normal size ejection fraction of 65-70%. The right ventricle did not appear enlarged. No episodes of low blood pressure less than 100 at all. Patient denies any chills. Vital Signs: Temperature 97.5, pulse 107, respiratory rate 18, blood pressure 113/62, 92% on 2 liters nasal cannula. Generally, awake, alert, oriented times three, answering questions appropriately. Patient has multiple piercings on her lips. No use of respiratory accessory muscles. Able to speak in full sentences without conversational dyspnea. Lungs are diminished at the right base with fine crackles. Heart: S1, S2, sinus tachycardia. Abdomen is soft, nontender, nondistended. Extremities: No pitting edema. LABORATORY DATA: Whit count 16.7, hemoglobin 9.6, hematocrit 30, platelet count 521. Sodium 134, potassium 3.2, chloride 99, bicarbonate 25, BUN 16, creatinine 0.96, glucose of 118, CRP of 27.1. CURRENT HOSPITAL MEDICATIONS: - Eliquis 10 mg twice a day until 03/16/2019, then 5 mg twice a day on 03/17/2019 - potassium 40 mEq times one - Xopenex every 4 hours and every 1 hour as needed - Senokot - Milk of Magnesia - Avelox - levothyroxine - Lispro insulin - Phenergan - Toradol every 8 hours as needed - nicotine patch - Zanaflex - acetaminophen - hypoglycemic protocol ASSESSMENT AND PLAN: This is a 23-year-old female with a history of active tobacco use and oral contraceptive patch, chronic back pain, morbid obesity, depression, hypothyroidism and hypertension who is a one pack-a-day smoker, was seen at urgent care for an ear infection, completed 10 days of amoxicillin, presented with dyspnea on exertion, productive cough and fever for 2 days with maximum temperature (T max) of 100.2 and white count of 15. EKG showed sinus tachycardia with elevated D-dimer. Chest CT shows a right central occlusive right lower lobe pulmonary artery embolism with patchy ground glass opacities and clot extending into the right middle lobe artery without evidence of right heart strain. Echo shows normal right ventricle, which does not appear enlarged, ejection fraction (EF) of 65-70%. Patient was placed on intravenous heparin drip and transitioned to Eliquis, loading dose 10 mg twice a day up to 03/16/2019 and 5 mg twice a day from 03/17/2019. Patient is minimally ambulatory and still desaturating with ambulation as well as exhibiting significant sinus tachycardia, but denied any near syncope, dizziness or lightheadedness. IMPRESSION: 1. Large pulmonary embolism in the setting of active smoking and oral contraceptive patch. Hypercoagulable workup has been sent. She completed intravenous (IV) heparin and currently on loading dose of Eliquis 10 mg twice a day for 7 days, then 5 mg twice a day for 3 months, transitioning over on 03/17/2019 to 5 mg twice a day. Patient has been advised about smoking cessation and different contraceptive method, potentially intrauterine device (IUD), due to increased risk of pulmonary embolism (PE), deep vein thrombosis (DVT) in the future. Per Dr. Gray, agreed with current management and no studies have shown superiority of Lovenox versus oral anticoagulants even for large pulmonary embolisms. Per interventional radiology (IR), Dr. Weber, no need for direct thrombolytic therapy as the patient is not exhibiting hemodynamic compromise. 2D echo showed no right ventricular (RV) strain. Right ventricle does not appear to be enlarged. 2. Community-acquired pneumonia. Currently on Avelox. Still with episodes of hemoptysis, most likely due to pulmonary hemorrhages from large pulmonary embolism. Patient has remained without any fever greater than 100.4. Strict intake and output. 3. Acute hypoxic respiratory failure secondary to large pulmonary embolism and community-acquired pneumonia. Currently on treatment for both. Still desaturating with ambulation. 4. Abnormal EKG with sinus tachycardia due to pulmonary embolism. 5. Hypertension, stable. No episodes of low blood pressure. 6. Hypothyroidism. On levothyroxine. 7. Active tobacco use. Cessation counseling has been provided. Currently on nicotine patch. 8. Bowel regimen has been provided due to increased risk of hypotension if patient strains due to large pulmonary embolism.
[2019-03-14] MEDS ORDERED: INFLUENZA QUADRIVALENT PF VACCINE 0.5ML SYRINGE (90686) IM ONE (09:00)
[2019-03-15 09:51] LABS: HEXAGONAL PHASE PHOSPHOLIPID 7 sec (0-11)
[2019-03-17] MEDS ORDERED: APIXABAN 5 MG TAB (ELIQUIS) PO SCH (09:00)
[2019-03-18 00:07] LABS: ANTI THROMBIN 3 ANTIGEN IMMUNO 78 % (72-124); ANTI THROMBIN 3 FUNCT ACTIVITY 136 % (75-135); ANTINUCLEAR ANTIBODIES DIRECT Negative (Negative); CARDIOLIPIN IGA ANTIBODY <9 APL U/mL (0-11); CARDIOLIPIN IGG ANTIBODY <9 GPL U/mL (0-14); CARDIOLIPIN IGM ANTIBODY <9 MPL U/mL (0-12)
== END 2019-03-13 18:38 | disposition short-term general hospital (02) | DRG 134 ==
LOC: M ED 03:14 → M ED INP 08:04 → M MSPAV 12:15 → M PCU 03-11 15:16 → M ICU 03-13 11:15
PROVIDERS: ADMIT Internal Medicine; ATTEND General Practice
DX: I26.99 Other pulmonary embolism without acute cor pulmonale (principal); J96.01 Acute respiratory failure with hypoxia; J18.9 Pneumonia, unspecified organism; E66.01 Morbid (severe) obesity due to excess calories; Z68.41 Body mass index [BMI] 40.0-44.9, adult; E87.1 Hypo-osmolality and hyponatremia; M54.5 Low back pain; F32.9 Major depressive disorder, single episode, unspecified; E87.6 Hypokalemia; E03.9 Hypothyroidism, unspecified; F17.200 Nicotine dependence, unspecified, uncomplicated; I10 Essential (primary) hypertension; E11.9 Type 2 diabetes mellitus without complications; Z79.899 Other long term (current) drug therapy; Z79.4 Long term (current) use of insulin

== ENCOUNTER → 2019-03-31 | Outpatient (REF) | payer OTHER, MEDICAID ==
[~2019-03-31] MED LIST changes: +ACET-683 PO; +AMOX875T PO; +DULO30CA9 PO; +ELIQ5TAB PO; +LISI20TA20 PO; +METF-791 PO; +TIZA4TAB4 PO; +XULA1DIS TOP
[2019-03-31 19:54] LABS: BASO # 0.1 10^3/uL (0.0-0.2); BASO % 0.9 % (0.0-1.0); EOS # 0.2 10^3/uL (0.0-0.5); EOS % 2.1 % (0.0-3.0); HEMATOCRIT 36.1 % (36.0-47.0); HEMOGLOBIN 10.7 g/dl (12.0-15.5); LYMPH # 3.2 10^3/uL (1.5-5.0); LYMPH % 29.5 % (24.0-44.0); MEAN CORPUSCULAR HEMOGLOBIN 23.5 pg (27.0-33.0); MEAN CORPUSCULAR HGB CONC 29.6 g/dl (32.0-36.5); MEAN CORPUSCULAR VOLUME 79.3 fl (80.0-96.0); MONO # 0.8 10^3/uL (0.0-0.8); MONO % 7.5 % (0.0-5.0); NEUTROPHILS # 6.5 10^3/uL (1.5-8.5); NEUTROPHILS % 59.7 % (36.0-66.0); PLATELET COUNT, AUTOMATED 664 10^3/uL (150-450); RED BLOOD COUNT 4.55 10^6/uL (4.00-5.40)
[2019-03-31 20:13] LABS: ALBUMIN 3.2 GM/DL (3.2-5.2); ALT/SGPT 14 U/L (12-78); BILIRUBIN,TOTAL 0.1 MG/DL (0.2-1.0); BLOOD UREA NITROGEN 9 MG/DL (7-18); CALCIUM LEVEL 9.6 MG/DL (8.5-10.1); CARBON DIOXIDE LEVEL 25 MEQ/L (21-32); CHLORIDE LEVEL 108 MEQ/L (98-107); CREATININE FOR GFR 0.71 MG/DL (0.55-1.30); GLOMERULAR FILTRATION RATE > 60.0 (>60); GLUCOSE, FASTING 95 MG/DL (70-100); SODIUM LEVEL 141 MEQ/L (136-145); TOTAL PROTEIN 7.1 GM/DL (6.4-8.2)
[2019-03-31 20:14] LABS: HEMOGLOBIN A1c 6.3 %
== END ==
LOC: M LAB REF 19:02
PROVIDERS: ATTEND Nurse Practitioner Adult Health
DX: I10 Essential (primary) hypertension (principal); I26.99 Other pulmonary embolism without acute cor pulmonale

== ENCOUNTER → 2019-08-22 | Outpatient (REF) | payer OTHER ==
[~2019-08-22] MED LIST changes: -METF-791 PO; +METF-838 PO
[2019-08-22 12:44] LABS: APPEARANCE, URINE MANUAL HAZY (CLEAR); BILIRUBIN, URINE MANUAL NEGATIVE (NEGATIVE); COLOR, URINE MANUAL YELLOW (YELLOW); GLUCOSE, URINE (UA) MANUAL NEGATIVE (NEGATIVE); KETONE, URINE MANUAL NEGATIVE (NEGATIVE); NITRITE, URINE MANUAL NEGATIVE (NEGATIVE); PH,URINE MAN 5.5 UNITS (5.0 - 7.0); PROTEIN, URINE MANUAL TRACE mg/dL (NEGATIVE); URINE PREG TEST NEGATIVE (NEGATIVE); UROBILINOGEN, URINE MANUAL NORMAL (NORMAL)
[2019-08-22 12:45] LABS: BLOOD URINE MANUAL TRACE (NEGATIVE); LEUKOCYTE ESTERASE, URINE MAN TRACE (NEGATIVE)
[2019-08-22 12:50] LABS: BACTERIA, URINE NONE SEEN; HYALINE CAST, URINE NONE SEEN /lpf (0-1); MUCUS, URINE SMALL AMOUNT (NEGATIVE); RBC, URINE 0-1 /hpf (0-3); SQUAMOUS EPITHELIAL CELL URINE SMALL AMOUNT /hpf (SMALL AMT)
[2019-08-22 12:51] LABS: AMORPHOUS SEDIMENT, URINE MOD AMOUNT (NEGATIVE)
== END ==
LOC: M LAB REF 11:41
PROVIDERS: ATTEND Physician Assistant
DX: N39.0 Urinary tract infection, site not specified (principal)

== ENCOUNTER → 2019-08-27 | Outpatient (CLI) | payer OTHER ==
[2019-08-27 09:53] LABS: APPEARANCE, URINE CLEAR (CLEAR); BACTERIA, URINE AUTO NEGATIVE (NEGATIVE); BILIRUBIN, URINE AUTO NEGATIVE (NEGATIVE); BLOOD, URINE BLOOD NEGATIVE (NEGATIVE); COLOR, URINE YELLOW (YELLOW); GLUCOSE, URINE (UA) AUTO NEGATIVE (NEGATIVE); KETONE, URINE AUTO NEGATIVE (NEGATIVE); LEUKOCYTE ESTERASE, URINE AUTO NEGATIVE (NEGATIVE); NITRITE, URINE AUTO NEGATIVE (NEGATIVE); PROTEIN, URINE AUTO NEGATIVE (NEGATIVE); RBC, URINE AUTO 1 /HPF (0-3); SPECIFIC GRAVITY URINE AUTO 1.021 (1.002-1.035); SQUAMOUS EPITHELIAL CELL UR AU 1 /HPF (0-6); UROBILINOGEN, URINE AUTO 0.2 mg/dL (0.0-2.0); WBC, URINE AUTO 1 /HPF (0-3)
[2019-08-27 09:54] LABS: BASO # 0.1 10^3/uL (0.0-0.2); BASO % 0.8 % (0.0-1.0); EOS # 0.2 10^3/uL (0.0-0.5); EOS % 1.7 % (0.0-3.0); HEMATOCRIT 36.7 % (36.0-47.0); LYMPH # 2.6 10^3/uL (1.5-5.0); LYMPH % 21.5 % (24.0-44.0); MEAN CORPUSCULAR HEMOGLOBIN 21.1 pg (27.0-33.0); MEAN CORPUSCULAR VOLUME 70.3 fl (80.0-96.0); MONO % 8.2 % (0.0-5.0); NEUTROPHILS # 8.1 10^3/uL (1.5-8.5); NEUTROPHILS % 67.5 % (36.0-66.0); PLATELET COUNT, AUTOMATED 609 10^3/uL (150-450); RED BLOOD COUNT 5.22 10^6/uL (4.00-5.40)
[2019-08-27 10:30] LABS: ALBUMIN 3.8 GM/DL (3.2-5.2); ALT/SGPT 19 U/L (12-78); BILIRUBIN,TOTAL 0.3 MG/DL (0.2-1.0); BLOOD UREA NITROGEN 17 MG/DL (7-18); CALCIUM LEVEL 9.7 MG/DL (8.5-10.1); CARBON DIOXIDE LEVEL 23 MEQ/L (21-32); CHLORIDE LEVEL 106 MEQ/L (98-107); CHOLESTEROL LEVEL 127 MG/DL (<200); CHOLESTEROL RISK RATIO 3.968 (<5); CREATININE FOR GFR 0.83 MG/DL (0.55-1.30); FREE T4 1.06 NG/DL (0.76-1.46); GLOMERULAR FILTRATION RATE > 60.0 (>60); GLUCOSE, FASTING 93 MG/DL (70-100); HDL CHOLESTEROL 32 MG/DL (>40); LDL CHOLESTEROL 79 MG/DL (<100); NON-HDL-C 95 MG/DL; POTASSIUM SERUM 4.1 MEQ/L (3.5-5.1); SODIUM LEVEL 137 MEQ/L (136-145); TOTAL PROTEIN 7.9 GM/DL (6.4-8.2); TRIGLYCERIDES LEVEL 82 MG/DL (<150)
[2019-08-27 10:32] LABS: TOTAL 25(OH) VITAMIN D 52.6 NG/ML (30.0-100.0)
[2019-08-27 10:43] LABS: HEMOGLOBIN A1c 5.8 %
== END ==
LOC: M LAB 09:05
PROVIDERS: ATTEND Nurse Practitioner Family
DX: I26.99 Other pulmonary embolism without acute cor pulmonale (principal); E03.9 Hypothyroidism, unspecified; R00.0 Tachycardia, unspecified; I10 Essential (primary) hypertension; F41.8 Other specified anxiety disorders; E66.01 Morbid (severe) obesity due to excess calories; F17.200 Nicotine dependence, unspecified, uncomplicated

== ENCOUNTER → 2019-10-02 | Outpatient (REF) | payer OTHER, MEDICAID | LOC: M LAB REF 16:38 | PROVIDERS: ATTEND Physician Assistant | DX: N39.0 Urinary tract infection, site not specified (principal) ==

== ENCOUNTER → 2019-10-07 | Outpatient (CLI) | payer OTHER, MEDICAID | LOC: M LAB 15:00 | PROVIDERS: ATTEND Physician Assistant Medical | DX: Z36.89 Encounter for other specified antenatal screening (principal) ==

== ENCOUNTER → 2019-10-15 | Outpatient (REF) | payer OTHER ==
[2019-10-15 22:50] LABS: APPEARANCE, URINE CLOUDY (CLEAR); BACTERIA, URINE AUTO NEGATIVE (NEGATIVE); BILIRUBIN, URINE AUTO NEGATIVE (NEGATIVE); BLOOD, URINE BLOOD NEGATIVE (NEGATIVE); CALCIUM OXALATE CRYSTALS SMALL; COLOR, URINE YELLOW (YELLOW); GLUCOSE, URINE (UA) AUTO NEGATIVE (NEGATIVE); KETONE, URINE AUTO NEGATIVE (NEGATIVE); LEUKOCYTE ESTERASE, URINE AUTO 3+ (NEGATIVE); MUCUS, URINE SMALL (NEGATIVE); NITRITE, URINE AUTO NEGATIVE (NEGATIVE); PROTEIN, URINE AUTO NEGATIVE (NEGATIVE); RBC, URINE AUTO 34 /HPF (0-3); SPECIFIC GRAVITY URINE AUTO 1.031 (1.002-1.035); SQUAMOUS EPITHELIAL CELL UR AU 8 /HPF (0-6); TRANSITIONAL EPITHELIAL AUTO <1 /HPF; UROBILINOGEN, URINE AUTO 0.2 mg/dL (0.0-2.0); WBC, URINE AUTO 118 /HPF (0-3)
== END ==
LOC: M LAB REF 22:15
PROVIDERS: ATTEND Physician Assistant
DX: N39.0 Urinary tract infection, site not specified (principal)

== ENCOUNTER → 2019-11-17 | Outpatient (REF) | payer OTHER ==
[2019-12-14 20:25] LABS: BASO % 0.3 % (0.0-1.0); EOS # 0.2 10^3/uL (0.0-0.5); EOS % 1.6 % (0.0-3.0); HEMATOCRIT 38.2 % (36.0-47.0); HEMOGLOBIN 11.6 g/dl (12.0-15.5); LYMPH # 2.4 10^3/uL (1.5-5.0); LYMPH % 25.5 % (24.0-44.0); MEAN CORPUSCULAR HGB CONC 30.4 g/dl (32.0-36.5); MEAN CORPUSCULAR VOLUME 75.8 fl (80.0-96.0); MONO # 0.8 10^3/uL (0.0-0.8); MONO % 8.4 % (0.0-5.0); NEUTROPHILS # 6.1 10^3/uL (1.5-8.5); PLATELET COUNT, AUTOMATED 401 10^3/uL (150-450); RED BLOOD COUNT 5.04 10^6/uL (4.00-5.40); WHITE BLOOD COUNT 9.5 10^3/uL (4.0-10.0)
[2020-01-06 11:39] LABS: ALBUMIN 3.5 GM/DL (3.2-5.2); ALT/SGPT 13 U/L (12-78); BILIRUBIN,TOTAL 0.4 MG/DL (0.2-1.0); BLOOD UREA NITROGEN 11 MG/DL (7-18); CALCIUM LEVEL 9.7 MG/DL (8.5-10.1); CARBON DIOXIDE LEVEL 24 MEQ/L (21-32); CHLORIDE LEVEL 109 MEQ/L (98-107); CREATININE FOR GFR 0.78 MG/DL (0.55-1.30); GLOMERULAR FILTRATION RATE > 60.0 (>60); GLUCOSE, FASTING 83 MG/DL (70-100); HEPATITIS B SURFACE ANTIGEN NEGATIVE (NEGATIVE); HEPATITIS C VIRUS ABY INDEX 0.2 INDEX (<0.8); HIV 1&2 SCREEN CENTAUR NEGATIVE (NEGATIVE); POTASSIUM SERUM 4.3 MEQ/L (3.5-5.1); SODIUM LEVEL 136 MEQ/L (136-145); TOTAL PROTEIN 7.6 GM/DL (6.4-8.2)
[2020-01-06 11:40] LABS: HEMOGLOBIN A1c 5.3 %; TOTAL PROTEIN,RANDOM URINE 25.1 MG/DL (0.0-12.0)
[2020-01-29 14:54] LABS: CHLAMYDIA DNA AMPLIFICATION NEGATIVE (NEGATIVE); GC DNA AMPLIFICATION NEGATIVE (NEGATIVE)
== END ==
LOC: M SFHCWAGY 09:03
PROVIDERS: ATTEND Obstetrics & Gynecology
DX: R39.9 Unspecified symptoms and signs involving the genitourinary system (principal)

== ENCOUNTER → 2019-12-15 | Outpatient (REF) | payer OTHER ==
[2019-12-15 21:15] LABS: CHLAMYDIA DNA AMPLIFICATION NEGATIVE (NEGATIVE); GC DNA AMPLIFICATION NEGATIVE (NEGATIVE)
== END ==
LOC: M SFHCWAGY 17:27
PROVIDERS: ATTEND Advanced Practice Midwife
DX: Z34.02 Encounter for supervision of normal first pregnancy, second trimester (principal)

== ENCOUNTER → 2020-01-07 | Outpatient (CLI) | payer OTHER ==
--- NOTE | 2020-01-15 09:40 | REP ---
COMPLETE OBSTETRICAL ULTRASOUND CLINICAL: Anatomical evaluation. FINDINGS: Ultrasound examination demonstrates a single live intrauterine in variable presentation. Placenta noted posteriorly and grade 1 without placenta previa or abruption. Amniotic fluid volume is normal. Cervix measures 3.9 cm in length and appears closed. Gestational age by LMP and current measurements is 18 weeks 2 days with estimated date of delivery of 06/07/20. heart rate is 163 beats per minute. Estimated weight is 223 grams (33rd percentile). Anatomical assessment demonstrates normal cranium, ventricles, choroid plexus, cerebellum, posterior fossa, cisterna magna, facial features, diaphragm, stomach, kidneys, bladder, spine extremities and three vessel cord. Limited evaluation of the heart and ventricular outflow tracts noted. IMPRESSION: Single live intrauterine demonstrating appropriate estimated weight. Limited evaluation of the heart and cardiac ventricular outflow tracts. The remainder of the anatomical assessment is complete and normal. MTDD
== END ==
LOC: M WHC 13:17
PROVIDERS: ATTEND Obstetrics & Gynecology
DX: Z34.82 Encounter for supervision of other normal pregnancy, second trimester (principal); Z3A.18 18 weeks gestation of pregnancy

== ENCOUNTER → 2020-02-23 | Outpatient (CLI) | payer OTHER ==
--- NOTE | 2020-02-23 18:22 | REP ---
INDICATION: F/U ANATOMY. COMPARISON: 01/07/2020. TECHNIQUE: Follow-up OB sonography with transabdominal imaging. FINDINGS: There is a single intrauterine gestation in transverse position with head to the maternal left. A posterior grade 0 placenta without previa or abruption is noted cord insertion is in the mid placenta. Three vessels are seen in the cord. The amniotic fluid volume is visually normal and the cervix is 3.7 cm long and closed. biometry PVD 5.6 cm 23 weeks 1 day HC 21.6 cm 23 weeks 5 days AC 20.1 cm 24 weeks 6 days FL 4.5 cm 24 weeks 6 days HL 4.1 cm 24 weeks 6 days Composite ultrasound dating 24 weeks 2 days with EDC 06/12/2020 by today's ultrasound Estimated weight 723 g or 1 lb 9 oz. This is 27th percentile for 25 weeks based on initial ultrasound heart rate 163 and regular. Today's exam does show the four-chamber heart view and both ventricular outflow tracts. They are grossly normal. IMPRESSION: 1. Single intrauterine gestation in transverse position with head towards the maternal left and with a posterior grade 0 placenta without previa or abruption. Amniotic fluid volume visually normal. 2. Size and dates show normal interval growth as detailed above 3. The 4 chamber heart view and the ventricular outflow tracts are seen today, they are unremarkable. Anatomy screening should be considered completed. <Electronically signed by Didier Bledsoe > 02/23/20 0195
== END ==
LOC: M WHC 14:25
PROVIDERS: ATTEND Advanced Practice Midwife
DX: Z3A.23 23 weeks gestation of pregnancy (principal)

== ENCOUNTER → 2020-03-01 | Outpatient (REF) | payer OTHER, MEDICAID ==
[2020-03-01 13:43] LABS: HEMATOCRIT 35.1 % (36.0-47.0); HEMOGLOBIN 11.1 g/dl (12.0-15.5); MEAN CORPUSCULAR HEMOGLOBIN 26.2 pg (27.0-33.0); MEAN CORPUSCULAR HGB CONC 31.6 g/dl (32.0-36.5); MEAN CORPUSCULAR VOLUME 82.8 fl (80.0-96.0); PLATELET COUNT, AUTOMATED 300 10^3/uL (150-450); RED BLOOD COUNT 4.24 10^6/uL (4.00-5.40); WHITE BLOOD COUNT 13.4 10^3/uL (4.0-10.0)
[2020-03-01 14:36] LABS: THYROID STIMULATING HORMONE 1.76 uIU/ML (0.358-3.740)
== END ==
LOC: M PLALAB 10:48
PROVIDERS: ATTEND Advanced Practice Midwife
DX: Z3A.23 23 weeks gestation of pregnancy (principal)

== ENCOUNTER → 2020-04-27 | Outpatient (CLI) | payer OTHER ==
[~2020-04-27] MED LIST changes: +ESCI10TA16 PO; -ESCI10TA2 PO
== END ==
LOC: M WHC 10:16
PROVIDERS: ATTEND Obstetrics & Gynecology
DX: Z53.9 Procedure and treatment not carried out, unspecified reason (principal); E66.01 Morbid (severe) obesity due to excess calories

== ENCOUNTER → 2020-05-11 | Outpatient (REF) | payer OTHER, MEDICAID ==
[~2020-05-11] MED LIST changes: +D31000TA2 PO; +ENOX40IN3 SC; +PREN200C PO
== END ==
LOC: M SFHCWAGY 13:37
PROVIDERS: ATTEND Advanced Practice Midwife
DX: Z34.93 Encounter for supervision of normal pregnancy, unspecified, third trimester (principal); Z3A.36 36 weeks gestation of pregnancy

== ENCOUNTER → 2020-05-20 | Outpatient (REF) | payer OTHER, MEDICAID | LOC: M SFHCWAGY 16:41 | PROVIDERS: ATTEND Advanced Practice Midwife | DX: O99.213 Obesity complicating pregnancy, third trimester (principal) ==

== ENCOUNTER → 2020-05-24 | Outpatient (REF) | payer OTHER | LOC: M PLALAB 08:42 | PROVIDERS: ATTEND Obstetrics & Gynecology | DX: Z01.818 Encounter for other preprocedural examination (principal) ==

== ENCOUNTER → 2020-05-25 | Outpatient (CLI) | payer OTHER ==
--- NOTE | 2020-05-26 06:55 | REP ---
INDICATION: GROWTH COMPARISON: 02/23/2020 TECHNIQUE: Transabdominal obstetrical ultrasound with color Doppler evaluation. FINDINGS: Examination demonstrates a single live intrauterine in breech presentation. motion is identified by technologist. Placenta is noted posterior and grade 3 without evidence for placenta previa or abruption. Amniotic fluid volume is normal. Cervix measures 3.1 cm in length and appears closed.. Gestational age by LMP 30 weeks 1 day with TRACEY 06/07/2020. Gestational age by current measurements 35 weeks 6 days with TRACEY 06/23/2020. FHR equals 149 beats per minute. BPD: 8.5 cm 34 weeks 1 day HC: 31.6 cm 35 weeks 4 days AC: 31.8 cm 35 weeks 5 days FL: 7.4 cm 37 weeks 5 days HL: 6.2 cm 36 weeks 1 day HC/AC: 0.99 Estimated weight 2831 grams (16thpercentile based on age of LMP and 1st ultrasound). DARLINE: 11.2 cm (7.3-23.8) IMPRESSION: Single live advanced gestation in breech presentation. Estimated weight remains within normal range. <Electronically signed by Favian Monroe > 05/26/20 0651
== END ==
LOC: M WHC 12:25
PROVIDERS: ATTEND Advanced Practice Midwife
DX: Z34.83 Encounter for supervision of other normal pregnancy, third trimester (principal); Z3A.34 34 weeks gestation of pregnancy; Z86.718 Personal history of other venous thrombosis and embolism

== ENCOUNTER → 2020-05-28 | Outpatient (CLI) | payer OTHER, MEDICAID | LOC: M LABSMTC 11:07 | PROVIDERS: ATTEND Anesthesiology | DX: Z01.812 Encounter for preprocedural laboratory examination (principal); Z20.822 Contact with and (suspected) exposure to COVID-19 ==

== ENCOUNTER 2020-06-02 06:05 | Inpatient (IN) | payer OTHER ==
[2020-06-02] VITALS (8 sets, daily range): BP systolic 102–140; BP diastolic 56–92
[~2020-06-02] VITALS: Ht 172.7 cm; Wt 126.4 kg
[2020-06-02] MEDS ORDERED: LR 800 ML IV SCH (07:30)
[2020-06-02] MEDS ORDERED: BICITRA 30ML SOLN UDC PO ONE (07:30)
[2020-06-02] MEDS ORDERED: ceFAZolin SOD 2 GM in IV 1 EA IV ONE (07:30)
[2020-06-02 07:33] LABS: HEMATOCRIT 39.9 % (36.0-47.0); HEMOGLOBIN 12.4 g/dl (12.0-15.5); MEAN CORPUSCULAR HEMOGLOBIN 25.7 pg (27.0-33.0); MEAN CORPUSCULAR HGB CONC 31.1 g/dl (32.0-36.5); MEAN CORPUSCULAR VOLUME 82.6 fl (80.0-96.0); PLATELET COUNT, AUTOMATED 323 10^3/uL (150-450); RED BLOOD COUNT 4.83 10^6/uL (4.00-5.40); WHITE BLOOD COUNT 13.7 10^3/uL (4.0-10.0)
[2020-06-02] MEDS ORDERED: MIDAZOLAM INJ 2MG/2ML VIAL (J2250 PER 1MG) As Ordered ONE (08:02)
[2020-06-02] MEDS ORDERED: MORPHINE PRES-FREE INJ 10 MG/10 ML VIAL (J2274) As Ordered ONE (08:03)
[2020-06-02] MEDS ORDERED: OXYTOCIN INJ 10 UNITS/ML VIAL (J2590) As Ordered ONE (08:04)
[2020-06-02] MEDS ORDERED: dexameTHASONE 4 MG/ML 1ML VIAL (J1100 PER 1MG) As Ordered ONE (08:04)
[2020-06-02] MEDS ORDERED: ONDANSETRON 4MG/2ML VIAL As Ordered ONE (08:04)
[2020-06-02] MEDS ORDERED: KETOROLAC 60MG 2ML VIAL As Ordered ONE (08:04)
[2020-06-02] MEDS ORDERED: OXYTOCIN 30 UNITS IN 0.9% NaCl 500ML IV BAG (J2590) As Ordered ONE ×2 (08:05→11:09)
[2020-06-02] MEDS ORDERED: LR 1,000 ML IV SCH (08:30)
[2020-06-02] MEDS ORDERED: METOCLOPRAMIDE INJ 10MG/2ML VIAL (J2765 PER 1) IV PRN ×2 (08:45→10:45)
[2020-06-02] MEDS ORDERED: NALOXONE INJ 0.4MG/1ML VIAL (J2310 PER 1MG) IV PRN ×2 (08:45)
[2020-06-02] MEDS ORDERED: diphenhydrAMINE 50MG/ML VIAL (J1200) IV PRN ×2 (08:45→10:45)
[2020-06-02] MEDS ORDERED: ONDANSETRON 4MG/2ML VIAL IV PRN ×3 (08:45→10:45)
[2020-06-02] MEDS ORDERED: NALBUPHINE HCL 10 MG/ML AMP (J2300) IV PRN (08:45)
[2020-06-02] MEDS ORDERED: OXYTOCIN DRIP 30 UNITS in IV 1 EA IV SCH (10:10)
[2020-06-02] MEDS ORDERED: PERCOCET 5MG/325MG TAB PO PRN (10:15)
[2020-06-02] MEDS ORDERED: MEASLES,MUMPS,RUBELLA VACCINE INJ (MMR-II) (90707) SC SCH (10:15)
[2020-06-02] MEDS ORDERED: SIMETHICONE 80MG CHEW TAB PO PRN (10:15)
[2020-06-02] MEDS ORDERED: ceFAZolin SOD 1 GM in D5W MINI-BAG PLUS 50 ML IV ONE (10:15)
[2020-06-02] MEDS ORDERED: RHOGAM 300 MCG (1500 IU) INJ (J2790) IM SCH (10:15)
[2020-06-02] MEDS ORDERED: OXYC1TAB23 PO (10:22)
[2020-06-02] MEDS ORDERED: IBUP80TA PO (10:22)
[2020-06-02] MEDS ORDERED: DOK1CAP7 PO (10:22)
[2020-06-02] MEDS ORDERED: LOVE0.6I2 SC (10:24)
[2020-06-02] MEDS ORDERED: MEPERIDINE INJ 25 MG/ML VIAL (J2175) IV PRN (10:45)
[2020-06-02] MEDS ORDERED: HYDROMORPHONE HCL 0.5 MG/ 0.5 ML SYRINGE (J1170 PER 1) IV PRN (10:45)
[2020-06-02] MEDS ORDERED: fentaNYL 100 MCG/2 ML INJECTION (J3010) As Ordered ONE (11:08)
[2020-06-02] MEDS: fentaNYL 100 MCG/2 ML INJECTION (J3010) IV PRN ×4 (11:12→11:35)
--- NOTE | 2020-06-02 11:13 | RO ---
OPERATIVE NOTE DATE OF OPERATION: 06/02/2020 PREOPERATIVE DIAGNOSES: 1. Breech presentation at 39 weeks 2 days. 2. Obesity, BMI 45. 3. History of pulmonary embolism in 2019 for which she is taking Lovenox 120 mg twice daily. 4. Hypothyroid for which she is taking Synthroid. 5. Chronic hypertension, although she had no blood pressure elevations during her and was not on medication for this. POSTOPERATIVE DIAGNOSES: 1. Breech presentation at 39 weeks 2 days, delivered. 2. Obesity, BMI 45. 3. History of pulmonary embolism in 2019 for which she is taking Lovenox 120 mg twice daily. 4. Hypothyroid for which she is taking Synthroid. 5. Chronic hypertension, although she had no blood pressure elevations during her and was not on medication for this. MATERIAL FORWARDED TO THE LAB FOR EXAMINATION: None. DESCRIPTION OF FINDINGS: Female infant in holly breech presentation, Apgars 4 and 9 and 9, weight 2920 gm or 6 pounds 7 ounces. Normal appearing uterus, fallopian tubes, ovaries were not visualized. INFECTION CLASSIFICATION: 2. ESTIMATED BLOOD LOSS: 500 mL. IV FLUIDS: 1700 mL of lactated Ringer's. URINE OUTPUT: 25 mL of clear yellow urine. PROCEDURE: Primary low transverse section. SURGEON: Nae Burris MD CANTEEN MANAGER: FREDERICK Amaya ANESTHESIA: INDICATION FOR OPERATION: Shandra is a 24-year-old G1, now P1,0,0,1 who was admitted for planned primary low transverse section given that she had persistent breech presentation at 39 weeks 2 days. DESCRIPTION OF PROCEDURE: After obtaining informed consent the patient was taken to the operating room. She had a reactive NST prior. Glover catheter and bilateral sequential compression devices were placed after she received spinal anesthesia. She was prepped and draped in normal sterile fashion in dorsal supine position with left lateral tilt. Time out was performed to confirm patient name, date of , procedure, and indication and team was in agreement. She received 2 gm of IV Ancef initially and then was also administered extra 1 gm at the end of the procedure for total of 3 gm of Ancef. Spinal anesthesia was found to be adequate using an Allis clamp. Pfannenstiel skin incision was made with scalpel and carried through to the underlying layer of fascia with Bovie. Fascia was incised in the midline and the incision was extended laterally with Torrez scissors. Superior and inferior aspects of the fascial incision were grasped with Alycia clamps, elevated and the underlying rectus muscles were dissected off bluntly and sharply. Peritoneum was entered digitally and the rectus muscles were in the midline. Peritoneal incision was extended superiorly and inferiorly with good visualization of the bladder. Vesicouterine peritoneum was identified, grasped with pickups and entered sharply with Metzenbaum scissors. Incision was extended laterally and the bladder flap was created digitally. The Mobius retractor was inserted. Lower uterine segment was scored in transverse fashion with scalpel and the uterus was entered bluntly with the incision extended with traction. There was thick meconium noted even before the amniotic sac was broken. The 's buttock was elevated to level of the incision with fundal pressure applied. After the buttocks were delivered the legs were delivered with Pinard's maneuver. The was delivered at the level of the axilla at which point Lovset maneuver was used to deliver each of the arms and then the head delivered with more fundal pressure. Nose and mouth were suctioned with bulb suction. Cord was clamped x2 and cut, was handed off to the awaiting team. Placenta was removed with uterine massage and traction on the cord and the uterus was left in situ but cleared of all clot and debris. Uterine incision was repaired with #0 Vicryl suture in running locking fashion, second layer of #0 Monocryl was used to close the hysterotomy incision in imbricating fashion. Uterine incision was inspected, hemostasis was noted. Peritoneum was closed after removing the Mobius using 3-0 Vicryl suture in running fashion. Rectus muscles were reapproximated with [id number] stitches using #0 Monocryl suture. Fascia was reapproximated with #0 Vicryl suture in running fashion. Subcutaneous tissue was copiously irrigated. Siria's fascia was reapproximated using 3-0 Vicryl suture in running fashion in two layers. Skin edges were reapproximated using 4-0 Monocryl with running subcuticular stitch. Incision was cleaned with wet lap, dried with dry lap, Steri-Strips were applied in the usual fashion perpendicular to the Pfannenstiel incision and Optifoam dressing was applied overlying. The vagina was cleared of all blood clot without active bleeding noted; fundus was firm at U-1 cm. All counts were correct x2. Procedure was without complications. The patient tolerated the procedure well and she was taken to the recovery room on Labor and Delivery in stable condition.
[2020-06-02] MEDS: DOCUSATE SODIUM 100MG CAPSULE PO SCH ×2 (14:58→21:05)
[2020-06-02] MEDS: LR 1,000 ML IV SCH ×3 (15:45→23:29)
[2020-06-02] MEDS: KETOROLAC 30 MG/ML 1ML VIAL IV SCH ×2 (15:46→21:05)
[2020-06-02] MEDS: ENOXAPARIN 120MG/0.8ML SYRINGE (J1650 PER 10MG) SC SCH (16:06)
[2020-06-02] MEDS ORDERED: LACTATED RINGER'S 1000 ML IV ONE (18:30)
[2020-06-03 02:00] VITALS: BP 124/70
[2020-06-03] MEDS: KETOROLAC 30 MG/ML 1ML VIAL IV SCH (03:18)
[2020-06-03] MEDS: ENOXAPARIN 120MG/0.8ML SYRINGE (J1650 PER 10MG) SC SCH ×2 (03:20→15:50)
[2020-06-03] MEDS: LEVOTHYROXINE 25MCG TABLET (0.025MG) PO SCH (05:41)
[2020-06-03 06:03] VITALS: BP 115/60
[2020-06-03 07:42] LABS: HEMATOCRIT 31.9 % (36.0-47.0); MEAN CORPUSCULAR HEMOGLOBIN 25.7 pg (27.0-33.0); MEAN CORPUSCULAR HGB CONC 30.4 g/dl (32.0-36.5); MEAN CORPUSCULAR VOLUME 84.4 fl (80.0-96.0); PLATELET COUNT, AUTOMATED 241 10^3/uL (150-450); RED BLOOD COUNT 3.78 10^6/uL (4.00-5.40); WHITE BLOOD COUNT 13.1 10^3/uL (4.0-10.0)
[2020-06-03 07:48] LABS: HEMOGLOBIN 9.7 g/dl (12.0-15.5)
[2020-06-03] MEDS: DOCUSATE SODIUM 100MG CAPSULE PO SCH ×2 (09:30→20:01)
[2020-06-03] MEDS: PRENATAL VITAMINS CHEWABLE TABLET PO SCH (09:30)
[2020-06-03] MEDS: PERCOCET 5MG/325MG TAB PO PRN (09:32)
[2020-06-03 10:00] VITALS: BP 123/69
[2020-06-03] MEDS: LR 1,000 ML IV SCH ×2 (10:10→17:23)
[2020-06-03] MEDS: IBUPROFEN 800 MG TAB PO SCH ×2 (12:32→19:57)
[2020-06-03 14:00] VITALS: BP 116/72
[2020-06-03 18:00] VITALS: BP 122/79
[2020-06-03 22:00] VITALS: BP 120/73
[2020-06-04 02:00] VITALS: BP 131/86
[2020-06-04] MEDS: ENOXAPARIN 120MG/0.8ML SYRINGE (J1650 PER 10MG) SC SCH (04:40)
[2020-06-04] MEDS: IBUPROFEN 800 MG TAB PO SCH ×2 (04:40→11:11)
[2020-06-04] MEDS: LEVOTHYROXINE 25MCG TABLET (0.025MG) PO SCH (05:31)
[2020-06-04 05:47] VITALS: BP 114/69
--- NOTE | 2020-06-04 07:07 | DS.PDOC ---
Discharge Summary General Date of Admission Jun 02, 2020 at 06:05 Date of Discharge 2020 Attending Physician: Nae Burris MD Discharge Summary PROCEDURES PERFORMED DURING STAY: [None]. ADMITTING DIAGNOSES: 1. 39 2/7 weeks, breech. DISCHARGE DIAGNOSES: 1. same. COMPLICATIONS/CHIEF COMPLAINT: Breech. HISTORY OF PRESENT ILLNESS: 24 yo at 39 2/7 weeks gestation with breech fetus. complicated by h/o PE, on Lovenox. Also, she has morbid obesity and chronic hypertension. HOSPITAL COURSE: Pt admitted on 06/02/20. She had a primary that was uncomplicated. Her post operative course was unremarkable. She had adequate return of bladder and bowel, function. She was stable for discharge on post op day #2. DISCHARGE MEDICATIONS: Please see below. ALLERGIES: Please see below. PHYSICAL EXAMINATION ON DISCHARGE: VITAL SIGNS: Please see below. GENERAL: WNL HEENT: WNL CARDIOVASCULAR EXAMINATION: RRR RESPIRATORY EXAMINATION: CTA ABDOMINAL EXAMINATION: NT, dressing C?D?I EXTREMITIES: NT LABORATORY DATA: Please see below. PROGNOSIS: good ACTIVITY: As tolerated. DIET: reg DISCHARGE PLAN: discharge home instructions reviewed DISCHARGE INSTRUCTIONS: 1.fu 2 weeks 2. Continue Lovenox DISCHARGE CONDITION: Stable. TIME SPENT ON DISCHARGE: Greater than 10 minutes. Vital Signs/I&Os Vital Signs Date Time Temp Pulse Resp B/P (MAP) Pulse Ox O2 Delivery O2 Flow Rate FiO2 06/04/20 05:47 98.4 93 16 114/69 (84) 98 Room Air I&O- Last 24 Hours up to 6 AM 06/04/20 06:00 Intake Total 1175 ml Output Total 450 ml Balance 725 ml Laboratory Data Labs 24H Laboratory Tests 2 06/03/20 07:14: Nucleated Red Blood Cells % (auto) 0.0 CBC/BMP Laboratory Tests 06/03/20 07:14 Discharge Medications Scheduled Cholecalciferol (Vitamin D3) (Vitamin D3) 1,000 Unit Tablet, 5,000 UNITS PO DAILY, (Reported) Docosahexanoic Acid ( Dha) 200 Mg Capsule, 1 CAP PO DAILY, (Reported) Docusate Sodium (Dok) 100 Mg Capsule, 100 MG PO BID Enoxaparin Sodium (Enoxaparin Sodium) 40 Mg/0.4 Ml Syringe, 120 MG SC BID, (Reported) Enoxaparin Sodium (Lovenox) 80 Mg/0.8 Ml Syringe, 120 MG SC BID for history of pulmonary embolism Ibuprofen (Ibuprofen) 800 Mg Tablet, 800 MG PO Q8H Levothyroxine Sodium (Levothyroxine Sodium) 25 Mcg Tab, 25 MCG PO QAM, (Reported) Scheduled PRN Oxycodone HCl/Acetaminophen (Oxycodone-Acetaminophen 5-325) 1 Each Tablet, 1 TAB PO Q4HP PRN for PAIN Allergies Coded Allergies: latex (Verified Allergy, Unknown, 05/24/20) MANJU LUQUE MD Jun 04, 2020 07:07
[2020-06-04] MEDS: DOCUSATE SODIUM 100MG CAPSULE PO SCH (09:03)
[2020-06-04] MEDS: PRENATAL VITAMINS CHEWABLE TABLET PO SCH (09:03)
[2020-06-04] MEDS: PERCOCET 5MG/325MG TAB PO PRN (09:28)
[2020-06-04 09:58] VITALS: BP 114/69
== END 2020-06-04 12:10 | disposition home or self-care (01) | DRG 540 ==
LOC: M LDI 06:05 → M OBS 12:02
PROVIDERS: ADMIT Obstetrics & Gynecology; ATTEND Obstetrics & Gynecology
PROC: 10D00Z1 Extraction of Products of Conception, Low, Open Approach (ICD-10-PCS; principal; 2020-06-02 08:30)
DX: O32.1XX0 Maternal care for breech presentation, not applicable or unspecified (principal); Z37.0 Single live birth; Z3A.39 39 weeks gestation of pregnancy; O10.02 Pre-existing essential hypertension complicating childbirth; O99.214 Obesity complicating childbirth; E66.9 Obesity, unspecified; O99.284 Endocrine, nutritional and metabolic diseases complicating childbirth; E03.9 Hypothyroidism, unspecified; O77.0 Labor and delivery complicated by meconium in amniotic fluid

== ENCOUNTER → 2020-12-03 | Outpatient (REF) ==
[~2020-12-03] MED LIST changes: +DOK1CAP4 PO; +IBUP80TA PO; +LOVE0.6I2 SC; +OXYC1TAB23 PO
--- NOTE | 2020-12-03 13:03 | REP ---
INDICATION: BACK PAIN COMPARISON: 08/01/2016 TECHNIQUE: AP, lateral, coned-down views of the lumbar spine. FINDINGS: Three views of the lumbosacral spine demonstrate satisfactory alignment and lordosis without acute fracture / compression injury or subluxation. No significant degenerative changes are appreciated by radiographic evaluation. IMPRESSION: 1. No acute fracture / compression injury or subluxation. 2. No significant degenerative changes noted by radiographic evaluation. If the patient remains symptomatic consider MRI for further investigation. <Electronically signed by Favian Monroe > 12/03/20 [id number]
--- NOTE | 2020-12-03 13:07 | REP ---
INDICATION: BACK PAIN. COMPARISON: None. TECHNIQUE: Frontal view of the pelvis with neutral and frog-lateral views of the bilateral hips. FINDINGS: Osseous structures are intact. No evidence for acute or healed injury. Bilateral hip joints are symmetric and relatively normal. IMPRESSION: Normal and symmetric appearance of the pelvis and hips. <Electronically signed by Favian Monroe > 12/03/20 1743
== END ==
LOC: M PLAIMG 12:05
PROVIDERS: ATTEND Internal Medicine
DX: M54.5 Low back pain (principal); M25.559 Pain in unspecified hip

== ENCOUNTER → 2021-04-24 | Outpatient (REF) | payer OTHER ==
[~2021-04-24] MED LIST changes: +DULO1CAP5 PO; +FERR325T3 PO; -LISI20TA20 PO; +LISI20TA37 PO; +TIZA10TA PO; -TIZA4TAB4 PO
[2021-04-24 17:50] LABS: APPEARANCE, URINE CLOUDY (CLEAR); BACTERIA, URINE AUTO NEGATIVE (NEGATIVE); BILIRUBIN, URINE AUTO NEGATIVE (NEGATIVE); BLOOD, URINE BLOOD 2+ (NEGATIVE); COLOR, URINE YELLOW (YELLOW); GLUCOSE, URINE (UA) AUTO NEGATIVE (NEGATIVE); KETONE, URINE AUTO NEGATIVE (NEGATIVE); LEUKOCYTE ESTERASE, URINE AUTO 3+ (NEGATIVE); MUCUS, URINE SMALL (NEGATIVE); NITRITE, URINE AUTO NEGATIVE (NEGATIVE); PROTEIN, URINE AUTO NEGATIVE (NEGATIVE); RBC, URINE AUTO 38 /HPF (0-3); SPECIFIC GRAVITY URINE AUTO 1.015 (1.002-1.035); SQUAMOUS EPITHELIAL CELL UR AU 6 /HPF (0-6); UROBILINOGEN, URINE AUTO 0.2 mg/dL (0.0-2.0); WBC, URINE AUTO 129 /HPF (0-3)
== END ==
LOC: M LAB REF 17:11
PROVIDERS: ATTEND Physician Assistant Medical
DX: N39.0 Urinary tract infection, site not specified (principal)

== ENCOUNTER → 2021-10-06 | Outpatient (CLI) | payer OTHER ==
[~2021-10-06] MED LIST changes: -D31000TA2 PO; +VITA100093 PO
== END ==
LOC: M PAIN 13:00
PROVIDERS: ATTEND Nurse Practitioner Family
DX: M54.50 Low back pain, unspecified (principal); G89.29 Other chronic pain; R73.03 Prediabetes; F17.210 Nicotine dependence, cigarettes, uncomplicated; Z86.59 Personal history of other mental and behavioral disorders; Z86.711 Personal history of pulmonary embolism; Z91.040 Latex allergy status; E66.01 Morbid (severe) obesity due to excess calories; Z68.41 Body mass index [BMI] 40.0-44.9, adult; Z79.01 Long term (current) use of anticoagulants; Z79.899 Other long term (current) drug therapy

== ENCOUNTER → 2021-12-02 | Outpatient (REF) | payer OTHER | LOC: M LAB REF 21:04 | PROVIDERS: ATTEND Physician Assistant | DX: J02.9 Acute pharyngitis, unspecified (principal) ==

== ENCOUNTER → 2022-03-02 | Outpatient (CLI) | payer OTHER ==
[~2022-03-02] MED LIST changes: +ENOX120I3 SC
[2022-03-02 18:50] LABS: BASO # 0.1 10^3/uL (0.0-0.2); BASO % 0.7 % (0.0-1.0); EOS # 0.3 10^3/uL (0.0-0.5); EOS % 2.4 % (0.0-3.0); HEMATOCRIT 43.2 % (36.0-47.0); HEMOGLOBIN 13.5 g/dl (12.0-15.5); LYMPH # 2.9 10^3/uL (1.5-5.0); LYMPH % 25.2 % (24.0-44.0); MEAN CORPUSCULAR HEMOGLOBIN 26.9 pg (27.0-33.0); MEAN CORPUSCULAR HGB CONC 31.3 g/dl (32.0-36.5); MEAN CORPUSCULAR VOLUME 86.2 fl (80.0-96.0); MONO # 0.8 10^3/uL (0.0-0.8); MONO % 7.3 % (2.0-8.0); NEUTROPHILS # 7.4 10^3/uL (1.5-8.5); NEUTROPHILS % 64.1 % (36.0-66.0); PLATELET COUNT, AUTOMATED 402 10^3/uL (150-450); RED BLOOD COUNT 5.01 10^6/uL (4.00-5.40); WHITE BLOOD COUNT 11.5 10^3/uL (4.0-10.0)
[2022-03-02 18:56] LABS: URINE PREG TEST POSITIVE (NEGATIVE)
[2022-03-02 21:24] LABS: ALBUMIN 3.6 G/DL (3.2-5.2); ALT/SGPT 13 U/L (7.0-40); BILIRUBIN,TOTAL < 0.2 MG/DL (0.3-1.2); BLOOD UREA NITROGEN 12 MG/DL (9-23); CALCIUM LEVEL 10.2 MG/DL (8.5-10.1); CARBON DIOXIDE LEVEL 21 MMOL/L (20-31); CHLORIDE LEVEL 109 MMOL/L (98-107); CREATININE FOR GFR 0.63 MG/DL (0.55-1.30); FERRITIN 84.3 NG/ML (7.3-270.7); GLOMERULAR FILTRATION RATE > 60.0 (>60); GLUCOSE, FASTING 81 MG/DL (60-100); IRON (FE) 34 UG/DL (50-170); PERCENT SATURATION 9.1 % (13.2-45.0); POTASSIUM SERUM 4.4 MMOL/L (3.5-5.1); SODIUM LEVEL 140 MMOL/L (136-145); TOTAL IRON BINDING CAPACITY 375 UG/DL (250-425); TOTAL PROTEIN 6.9 G/DL (5.7-8.2)
== END ==
LOC: M LAB 16:54
PROVIDERS: ATTEND Internal Medicine Medical Oncology
DX: I26.99 Other pulmonary embolism without acute cor pulmonale (principal)

== ENCOUNTER 2022-03-03 15:14 | Emergency (ER) | payer OTHER ==
[~2022-03-03] VITALS: Ht 170.2 cm; Wt 127.3 kg
[2022-03-03 16:05] LABS: BASO # 0.1 10^3/uL (0.0-0.2); BASO % 0.7 % (0.0-1.0); EOS # 0.3 10^3/uL (0.0-0.5); EOS % 2.3 % (0.0-3.0); HEMATOCRIT 42.2 % (36.0-47.0); HEMOGLOBIN 13.2 g/dl (12.0-15.5); LYMPH # 2.8 10^3/uL (1.5-5.0); LYMPH % 23.8 % (24.0-44.0); MEAN CORPUSCULAR HEMOGLOBIN 26.8 pg (27.0-33.0); MEAN CORPUSCULAR HGB CONC 31.3 g/dl (32.0-36.5); MEAN CORPUSCULAR VOLUME 85.8 fl (80.0-96.0); MONO # 0.9 10^3/uL (0.0-0.8); MONO % 7.4 % (2.0-8.0); NEUTROPHILS # 7.8 10^3/uL (1.5-8.5); NEUTROPHILS % 65.5 % (36.0-66.0); PLATELET COUNT, AUTOMATED 381 10^3/uL (150-450); RED BLOOD COUNT 4.92 10^6/uL (4.00-5.40); WHITE BLOOD COUNT 11.8 10^3/uL (4.0-10.0)
[2022-03-03 16:19] LABS: INR 0.98; PROTHROMBIN TIME 13.2 SECONDS (12.5-14.5)
[2022-03-03 16:20] LABS: PARTIAL THROMBOPLASTIN TIME 28.3 SECONDS (24.8-34.2)
[2022-03-03] MEDS ORDERED: NS 1,000 ML IV ONE (16:30)
[2022-03-03 16:59] LABS: BLOOD UREA NITROGEN 10 MG/DL (9-23); CALCIUM LEVEL 9.9 MG/DL (8.5-10.1); CARBON DIOXIDE LEVEL 22 MMOL/L (20-31); CHLORIDE LEVEL 108 MMOL/L (98-107); CREATININE FOR GFR 0.75 MG/DL (0.55-1.30); GLOMERULAR FILTRATION RATE > 60.0 (>60); GLUCOSE, FASTING 101 MG/DL (60-100); HCG, SERUM QUANTITATIVE 1000.00001 MIU/ML (<4.2); POTASSIUM SERUM 4.1 MMOL/L (3.5-5.1); SODIUM LEVEL 140 MMOL/L (136-145)
[2022-03-03 18:08] VITALS: BP 138/67
== END 2022-03-03 18:11 | disposition home or self-care (01) ==
LOC: M ED 15:14 → EDBD 15:14 → M ED 18:11
DX: O20.0 Threatened abortion (principal); O99.340 Other mental disorders complicating pregnancy, unspecified trimester; Z91.040 Latex allergy status

== ENCOUNTER → 2022-03-13 | Outpatient (CLI) | payer OTHER ==
[~2022-03-13] MED LIST changes: +COLA100C5 PO; +NYST1POW9 TOP; +PERCOCET PO
== END ==
LOC: M LAB 14:40
PROVIDERS: ATTEND Advanced Practice Midwife
DX: O20.0 Threatened abortion (principal)

== ENCOUNTER 2022-03-14 19:09 | Day surgery (SDC) | payer OTHER ==
[~2022-03-14] VITALS: Ht 170.2 cm; Wt 132.5 kg
[~2022-03-14 19:09] MED LIST changes: -COLA100C5 PO; -NYST1POW9 TOP; -PERCOCET PO
[2022-03-14] MEDS ORDERED: NYST1POW9 TOP (19:24)
[2022-03-14 22:25] LABS: BASO # 0.1 10^3/uL (0.0-0.2); BASO % 0.6 % (0.0-1.0); EOS # 0.1 10^3/uL (0.0-0.5); EOS % 0.9 % (0.0-3.0); HEMATOCRIT 37.5 % (36.0-47.0); HEMOGLOBIN 11.9 g/dl (12.0-15.5); LYMPH # 2.5 10^3/uL (1.5-5.0); LYMPH % 17.7 % (24.0-44.0); MEAN CORPUSCULAR HEMOGLOBIN 27.1 pg (27.0-33.0); MEAN CORPUSCULAR HGB CONC 31.7 g/dl (32.0-36.5); MEAN CORPUSCULAR VOLUME 85.4 fl (80.0-96.0); MONO # 0.9 10^3/uL (0.0-0.8); MONO % 6.7 % (2.0-8.0); NEUTROPHILS # 10.4 10^3/uL (1.5-8.5); NEUTROPHILS % 73.7 % (36.0-66.0); PLATELET COUNT, AUTOMATED 454 10^3/uL (150-450); RED BLOOD COUNT 4.39 10^6/uL (4.00-5.40); WHITE BLOOD COUNT 14.1 10^3/uL (4.0-10.0)
[2022-03-14 22:52] LABS: CHLORIDE LEVEL 107 MMOL/L (98-107); POTASSIUM SERUM 4.4 MMOL/L (3.5-5.1); SODIUM LEVEL 140 MMOL/L (136-145)
[2022-03-14 22:53] LABS: CARBON DIOXIDE LEVEL 22 MMOL/L (20-31)
[2022-03-14 22:58] LABS: BLOOD UREA NITROGEN 12 MG/DL (9-23); CALCIUM LEVEL 9.8 MG/DL (8.5-10.1); GLUCOSE, FASTING 103 MG/DL (60-100)
[2022-03-14 23:00] LABS: CREATININE FOR GFR 0.61 MG/DL (0.55-1.30); GLOMERULAR FILTRATION RATE > 60.0 (>60)
[2022-03-14 23:15] LABS: HCG, SERUM QUANTITATIVE 1366.3 MIU/ML (<4.2)
[2022-03-15] MEDS ORDERED: ACETAMINOPHEN TAB 650MG DOSE (2X325MG) PO ONE (07:20)
[2022-03-15] MEDS ORDERED: NS 1,000 ML IV ONE (08:55)
[2022-03-15] MEDS ORDERED: ENOX120I3 SC (09:17)
[2022-03-15] MEDS ORDERED: HOME MED LIST COMPLETE! XX SCH (09:20)
[2022-03-15 09:40] LABS: INR 1.04; PROTHROMBIN TIME 13.8 SECONDS (12.5-14.5)
[2022-03-15 09:41] LABS: PARTIAL THROMBOPLASTIN TIME 27.5 SECONDS (24.8-34.2)
[2022-03-15 09:51] LABS: RSV AMPLIFICATION NEGATIVE (NEGATIVE)
[2022-03-15] MEDS ORDERED: SILVER NITRATE APPLICATOR (1 = QTY 10) As Ordered ONE (12:22)
[2022-03-15] MEDS ORDERED: BUPIVACAINE HCL 0.25% 10ML VIAL As Ordered ONE (12:22)
[2022-03-15] MEDS ORDERED: fentaNYL 250 MCG/5 ML INJECTION As Ordered ONE (12:23)
[2022-03-15] MEDS ORDERED: MIDAZOLAM INJ 2MG/2ML VIAL As Ordered ONE (12:23)
[2022-03-15] MEDS ORDERED: ONDANSETRON 4MG 2ML VIAL As Ordered ONE (12:24)
[2022-03-15] MEDS ORDERED: KETOROLAC 60MG 2ML VIAL As Ordered ONE (12:24)
[2022-03-15] MEDS ORDERED: propofoL 200 MG/20 ML VIAL As Ordered ONE (12:24)
[2022-03-15] MEDS ORDERED: ROCURONIUM BROMIDE 50MG/5ML VIAL As Ordered ONE ×2 (12:24→14:07)
[2022-03-15] MEDS ORDERED: LIDOCAINE 2% 100MG/5ML SDV (FOR ANES.) As Ordered ONE (12:24)
[2022-03-15] MEDS ORDERED: ACETAMINOPHEN 1000MG 100ML IV BAG As Ordered ONE (12:34)
[2022-03-15] MEDS ORDERED: SUGAMMADEX SODIUM 500 MG/5 ML VIAL (BRIDION) As Ordered ONE (13:39)
[2022-03-15] MEDS ORDERED: HYDROmorphone HCL 2MG/ML 1ML VIAL As Ordered ONE (13:53)
[2022-03-15] MEDS ORDERED: HYDROMORPHONE HCL 0.5 MG/ 0.5 ML SYRINGE IV PRN (15:10)
[2022-03-15] MEDS ORDERED: LR 1,000 ML IV SCH ×2 (15:10→16:05)
[2022-03-15] MEDS ORDERED: ONDANSETRON 4MG 2ML VIAL IV PRN ×2 (15:10→16:15)
[2022-03-15] MEDS ORDERED: oxyCODONE 5MG TAB PO PRN (15:10)
[2022-03-15] MEDS ORDERED: ceFAZolin SOD 2 GM in IV 1 EA IV ONE (16:00)
[2022-03-15 16:10] VITALS: BP 174/83
[2022-03-15] MEDS ORDERED: MORPHINE 4 MG/ML 1ML VIAL IV PRN (16:10)
[2022-03-15] MEDS ORDERED: PERCOCET 5MG/325MG TAB PO PRN (16:15)
[2022-03-15] MEDS ORDERED: LABETALOL 100MG/20ML VIAL IV PRN (16:20)
[2022-03-15] MEDS ORDERED: ALBUTEROL SULFATE 2.5MG/0.5ML INH NEB SOLN INH ONE (16:35)
[2022-03-15] MEDS ORDERED: PERCOCET PO (16:36)
[2022-03-15] MEDS ORDERED: COLA100C5 PO (16:36)
[2022-03-15] MEDS ORDERED: IBUP80TA PO (16:38)
[2022-03-15] MEDS: fentaNYL 100 MCG/2 ML INJECTION IV PRN ×2 (16:47→17:01)
[2022-03-15 18:16] LABS: HEMATOCRIT 34.2 % (36.0-47.0); HEMOGLOBIN 10.9 g/dl (12.0-15.5); MEAN CORPUSCULAR HEMOGLOBIN 27.6 pg (27.0-33.0); MEAN CORPUSCULAR HGB CONC 31.9 g/dl (32.0-36.5); MEAN CORPUSCULAR VOLUME 86.6 fl (80.0-96.0); PLATELET COUNT, AUTOMATED 422 10^3/uL (150-450); RED BLOOD COUNT 3.95 10^6/uL (4.00-5.40); WHITE BLOOD COUNT 17.4 10^3/uL (4.0-10.0)
[2022-03-15 20:20] VITALS: BP 132/72
[2022-03-15] MEDS ORDERED: KETOROLAC 30 MG/ML 1ML VIAL IV PRN (20:45)
[2022-03-15] MEDS ORDERED: DOCUSATE SODIUM 100MG CAPSULE PO SCH (21:00)
[2022-04-25] MEDS ORDERED: ELIQ5TAB PO (15:46)
== END 2022-03-15 20:55 | disposition home or self-care (01) ==
LOC: M SDC 19:09 → M ED 19:09 → M SDC 19:10 → UNDODEPER 04-27 15:24
PROVIDERS: ATTEND Obstetrics & Gynecology
DX: O00.90 Unspecified ectopic pregnancy without intrauterine pregnancy (principal); F31.9 Bipolar disorder, unspecified; K66.0 Peritoneal adhesions (postprocedural) (postinfection); E66.9 Obesity, unspecified
CPT/HCPCS: 36415; 59151; 76801; 76817; 80048; 81000; 81015; 84702; 85025; 85027; 85610; 85730; 86850; 86900; 86901; 87086; 87631; 88305; 93041; 96374; 99285; J0131; J0690; J1100; J1170; J1885; J2250; J2405; J3010

== ENCOUNTER → 2022-07-01 | Outpatient (REF) | payer OTHER ==
[~2022-07-01] MED LIST changes: +COLA100C5 PO; +NYST1POW9 TOP; +PERCOCET PO
[2022-07-01 14:44] LABS: APPEARANCE, URINE HAZY (CLEAR); BACTERIA, URINE AUTO NEGATIVE (NEGATIVE); BILIRUBIN, URINE AUTO NEGATIVE (NEGATIVE); BLOOD, URINE BLOOD 1+ (NEGATIVE); COLOR, URINE YELLOW (YELLOW); GLUCOSE, URINE (UA) AUTO NEGATIVE (NEGATIVE); KETONE, URINE AUTO NEGATIVE (NEGATIVE); LEUKOCYTE ESTERASE, URINE AUTO NEGATIVE (NEGATIVE); MUCUS, URINE SMALL (NEGATIVE); NITRITE, URINE AUTO NEGATIVE (NEGATIVE); PROTEIN, URINE AUTO 1+ mg/dL (NEGATIVE); RBC, URINE AUTO 1 /HPF (0-3); SPECIFIC GRAVITY URINE AUTO 1.026 (1.002-1.035); SQUAMOUS EPITHELIAL CELL UR AU 6 /HPF (0-6); UROBILINOGEN, URINE AUTO 0.2 mg/dL (0.0-2.0); WBC, URINE AUTO 2 /HPF (0-3)
== END ==
LOC: M LAB REF 13:50
PROVIDERS: ATTEND Physician Assistant Medical
DX: N39.0 Urinary tract infection, site not specified (principal)

== ENCOUNTER → 2022-08-04 | Outpatient (REF) | payer OTHER ==
[2022-08-04 13:46] LABS: APPEARANCE, URINE CLOUDY (CLEAR); BACTERIA, URINE AUTO NEGATIVE (NEGATIVE); BILIRUBIN, URINE AUTO NEGATIVE (NEGATIVE); BLOOD, URINE BLOOD 1+ (NEGATIVE); COLOR, URINE YELLOW (YELLOW); GLUCOSE, URINE (UA) AUTO NEGATIVE (NEGATIVE); KETONE, URINE AUTO TRACE mg/dL (NEGATIVE); LEUKOCYTE ESTERASE, URINE AUTO 3+ (NEGATIVE); MUCUS, URINE SMALL (NEGATIVE); NITRITE, URINE AUTO NEGATIVE (NEGATIVE); PROTEIN, URINE AUTO 2+ mg/dL (NEGATIVE); RBC, URINE AUTO 11 /HPF (0-3); SPECIFIC GRAVITY URINE AUTO 1.027 (1.002-1.035); SQUAMOUS EPITHELIAL CELL UR AU 2 /HPF (0-6); UROBILINOGEN, URINE AUTO 0.2 mg/dL (0.0-2.0); WBC, URINE AUTO TNTC /HPF (0-3)
== END ==
LOC: M LAB REF 12:16
PROVIDERS: ATTEND Physician Assistant
DX: N39.0 Urinary tract infection, site not specified (principal)

== ENCOUNTER → 2023-01-23 | Outpatient (REF) | payer OTHER ==
[2023-01-23 17:07] LABS: APPEARANCE, URINE HAZY (CLEAR); BACTERIA, URINE AUTO NEGATIVE (NEGATIVE); BILIRUBIN, URINE AUTO NEGATIVE (NEGATIVE); BLOOD, URINE BLOOD NEGATIVE (NEGATIVE); COLOR, URINE YELLOW (YELLOW); GLUCOSE, URINE (UA) AUTO NEGATIVE (NEGATIVE); KETONE, URINE AUTO 1+ mg/dL (NEGATIVE); LEUKOCYTE ESTERASE, URINE AUTO 1+ (NEGATIVE); MUCUS, URINE SMALL (NEGATIVE); NITRITE, URINE AUTO NEGATIVE (NEGATIVE); PROTEIN, URINE AUTO NEGATIVE (NEGATIVE); RBC, URINE AUTO 2 /HPF (0-3); SPECIFIC GRAVITY URINE AUTO 1.017 (1.002-1.035); SQUAMOUS EPITHELIAL CELL UR AU 4 /HPF (0-6); UROBILINOGEN, URINE AUTO 0.2 mg/dL (0.0-2.0); WBC, URINE AUTO 34 /HPF (0-3)
== END ==
LOC: M LAB REF 16:24
PROVIDERS: ATTEND Physician Assistant
DX: N39.0 Urinary tract infection, site not specified (principal)

== ENCOUNTER → 2023-07-30 | Outpatient (REF) | payer OTHER ==
[~2023-07-30] MED LIST changes: +ACET650T61 PO
== END ==
LOC: M SFHCWAGY 15:08
PROVIDERS: ATTEND Nurse Practitioner Family
DX: Z12.4 Encounter for screening for malignant neoplasm of cervix (principal); R30.0 Dysuria

== ENCOUNTER → 2023-08-07 | Outpatient (REF) | payer OTHER ==
[2023-08-07 13:42] LABS: BASO # 0.1 10^3/uL (0.0-0.2); BASO % 0.7 % (0.0-1.0); EOS # 0.4 10^3/uL (0.0-0.5); EOS % 3.1 % (0.0-3.0); HEMATOCRIT 41.7 % (36.0-47.0); HEMOGLOBIN 12.7 g/dl (12.0-15.5); LYMPH # 3.4 10^3/uL (1.5-5.0); LYMPH % 27.7 % (24.0-44.0); MEAN CORPUSCULAR HGB CONC 30.5 g/dl (32.0-36.5); MEAN CORPUSCULAR VOLUME 82.1 fl (80.0-96.0); MONO % 8.1 % (2.0-8.0); NEUTROPHILS # 7.3 10^3/uL (1.5-8.5); NEUTROPHILS % 60.1 % (36.0-66.0); PLATELET COUNT, AUTOMATED 581 10^3/uL (150-450); RED BLOOD COUNT 5.08 10^6/uL (4.00-5.40); WHITE BLOOD COUNT 12.1 10^3/uL (4.0-10.0)
[2023-08-07 13:56] LABS: HEMOGLOBIN A1c 5.6 % (4.0-6.0)
[2023-08-07 14:22] LABS: ALBUMIN 3.7 G/DL (3.2-5.2); ALKALINE PHOSPHATASE 102 U/L (46-116); ALT/SGPT 19 U/L (7.0-40); AST/SGOT 18 U/L (<34); BILIRUBIN,TOTAL 0.2 MG/DL (0.3-1.2); BLOOD UREA NITROGEN 12 MG/DL (9-23); CALCIUM LEVEL 10.1 MG/DL (8.5-10.1); CARBON DIOXIDE LEVEL 22 MMOL/L (20-31); CHLORIDE LEVEL 105 MMOL/L (98-107); CHOLESTEROL LEVEL 153 MG/DL (<200); CHOLESTEROL RISK RATIO 4.38 (<5); CREATININE FOR GFR 0.58 MG/DL (0.55-1.30); GLOMERULAR FILTRATION RATE > 60.0 (>60); GLUCOSE, FASTING 90 MG/DL (60-100); HDL CHOLESTEROL 34.9 MG/DL (>40); LDL CHOLESTEROL 81.9 MG/DL (<100); NON-HDL-C 118.1 MG/DL; POTASSIUM SERUM 4.9 MMOL/L (3.5-5.1); SODIUM LEVEL 138 MMOL/L (136-145); TOTAL PROTEIN 7.7 G/DL (5.7-8.2); TRIGLYCERIDES LEVEL 181 MG/DL (<150)
[2023-08-07 14:25] LABS: THYROID STIMULATING HORMONE 1.625 uIU/ML (0.55-4.78); TOTAL 25(OH) VITAMIN D 13.3 NG/ML (20.0-100.0)
== END ==
LOC: M LAB REF 12:49
PROVIDERS: ATTEND Nurse Practitioner Family
DX: E55.9 Vitamin D deficiency, unspecified (principal); E66.3 Overweight; R53.83 Other fatigue; Z11.9 Encounter for screening for infectious and parasitic diseases, unspecified

== ENCOUNTER → 2023-09-05 | Outpatient (CLI) | payer OTHER | LOC: M PLAIMG 08-17 09:24 → M RAD 08:13 | PROVIDERS: ATTEND Pain Medicine Interventional Pain Medicine | DX: M47.26 Other spondylosis with radiculopathy, lumbar region (principal) ==

== ENCOUNTER → 2023-12-06 | Outpatient (REF) | payer OTHER ==
[~2023-12-06] MED LIST changes: +DULO1CAP4 PO; +VITA200032 PO
== END ==
LOC: M LAB REF 16:19
PROVIDERS: ATTEND Nurse Practitioner Family
DX: E61.1 Iron deficiency (principal)

== ENCOUNTER → 2023-12-27 | Outpatient (REF) | payer OTHER | LOC: M LAB REF 12:44 | PROVIDERS: ATTEND Nurse Practitioner Family | DX: R30.0 Dysuria (principal) ==

== ENCOUNTER → 2024-07-11 | Outpatient (CLI) | payer OTHER ==
[~2024-07-11] MED LIST changes: +NYST1POW3 TOP; -NYST1POW9 TOP
== END ==
LOC: M WHC 06-19 14:49 → M RAD 13:24
PROVIDERS: ATTEND Nurse Practitioner Family
DX: N92.0 Excessive and frequent menstruation with regular cycle (principal); N83.291 Other ovarian cyst, right side; N88.8 Other specified noninflammatory disorders of cervix uteri

== ENCOUNTER → 2025-02-28 | Outpatient (REF) | payer OTHER | LOC: M LAB REF 10:00 | PROVIDERS: ATTEND Physician Assistant | DX: B34.9 Viral infection, unspecified (principal) ==